=== PATIENT | female | born 1985 | race Caucasian/White ===

== ENCOUNTER 2019-11-05 14:51 | Emergency (ER) | payer BC, SELFPAY ==
[2019-11-05 14:53] VITALS: BP 171/115; PULSE 120; RESP 22; TEMP 36.8; O2SAT 99; BMI 26.5
[2019-11-05 15:23] LABS: Microscopic, Urine URINE MICROSCOPIC (MICROSCOPIC)
[2019-11-05 15:24] LABS: Appearance,Urine CLEAR (Clear); Bilirubin,Urine Negative (Negative); Blood, Urine Negative (Negative); Color,Urine YELLOW (Yellow); Glucose,Urine (UA) Negative (Negative); Ketones,Urine Negative (Negative); Leukocyte Esterase,Urine TRACE (Negative); Nitrate,Urine Negative (Negative); PH,Urine 6.5 (5.0-8.5); Protein,Urine Negative (Negative); Urobilinogen,Urine 0.2 EU/dl (0.2)
[2019-11-05 15:26] VITALS: BP 174/98; PULSE 131; O2SAT 99
--- NOTE | 2019-11-05 15:34 | [facility].EDGENADL ---
ED Disposition Clinical Impression: Adverse drug reaction Qualifiers: Encounter type: initial encounter Qualified Code(s): T50.905A - Adverse effect of unspecified drugs, medicaments and biological substances, initial encounter Disposition: Home, Self-Care Condition on Discharge: Good Additional Instructions: Do not take Haldol or Strattera until you see your primary care provider or psychiatrist. Follow-up with primary care provider or psychiatrist within 1 to 2 days. Cogentin and Ativan as prescribed. Prescriptions: LORazepam [Ativan 1mg tablet] 1 mg PO BID #6 tab Prescription Printed Benztropine Mesylate [Cogentin 1mg tablet] 1 mg PO BID #6 tab Prescription Printed Referrals: Ralph Valles MD [Primary Care Provider] - - Critical Care Critical Care Time: No Attestation: On 11/05/19, the high probability of a clinically significant, sudden or life threatening deterioration of the following system(s) required my full and direct attention, intervention and personal management. The time I documented below is in addition to time spent performing reported procedures but includes the following listed in this critical care notation. Medical Decision Making - Melecio Inquiry Pt receiving controlled substance: Yes (Ativan) Melecio was queried for this patient: No Reason not queried -: Emergent pt cond-no time Risks and benefits of using a controlled substance: were not discussed with pt by me Vital Signs: 11/05/19 14:53 11/05/19 15:26 11/05/19 16:13 Temperature 98.2 F Temperature Source Oral Pulse Rate [Right] 120 H 131 H 94 H Respiratory Rate 22 Blood Pressure [Right Arm] 171/115 H 174/98 H 141/97 H Blood Pressure Mean [Right Arm] 133 123 111 Blood Pressure Source [Right Arm] Automatic Cuff Automatic Cuff Blood Pressure Position [Right Arm] Sitting Sitting 02 Sat by Pulse Oximetry 99 99 98 Oxygen Delivery Method Room Air Room Air - Lab Data Lab Results 11/05/19 15:07: Urine Color Yellow, Urine Appearance Clear, Urine pH 6.5, Ur Specific [place] 1.010, Urine Protein Negative, Urine Glucose (UA) Negative, Urine Ketones Negative, Urine Blood Negative, Urine Nitrate Negative, Urine Bilirubin Negative, Urine Urobilinogen 0.2, Ur Leukocyte Esterase Trace, Urine RBC 3-5, Urine WBC 10-20, Ur Squamous Epith Cells 5-10, Urine Bacteria 1+ 11/05/19 15:07: Urine Opiates Screen Negative, Urine Methadone Screen Negative, Ur Barbituates Screen Negative, Ur Phencyclidine Scrn Negative, Ur Amphetamines Screen Negative, U Benzodiazepines Scrn Negative, Urine Cocaine Screen Negative, U Marijuana (THC) Screen Negative 11/05/19 15:11: WBC 7.5, RBC 4.54, Hgb 14.5, Hct 42.3, MCV 93.2, MCH 32.0 H, MCHC 34.4, RDW 13.3, Plt Count 363, MPV 6.8 L, Neut % (Auto) 72.6, Lymph % (Auto) 20.7, [place] % (Auto) 5.7, Eos % (Auto) 0.6, Baso % (Auto) 0.4, Neut # (Auto) 5.4, Lymph # (Auto) 1.6, [place] # (Auto) 0.4, Eos # (Auto) 0.0, Baso # (Auto) 0.0 11/05/19 15:11: Sodium 139, Potassium 4.0, Chloride 104, Carbon Dioxide 28, Anion Gap 11.0, BUN 16, Creatinine 0.60, Estimated Creat Clear 137, Estimated GFR 114, Est GFR ( Amer) 138, Glucose 129 H, Calcium 10.7 H, Total Bilirubin 0.3, AST 21, ALT 15, Alkaline Phosphatase 79, Total Protein 8.4 H, Albumin 4.9, Globulin 3.5 H, Albumin/Globulin Ratio 1.4, Salicylates 10.5, Acetaminophen 12 11/05/19 15:11: Plasma/Serum Alcohol < 10 11/05/19 15:11: Total Creatine Kinase 70 Result diagrams: 11/05/19 15:11 11/05/19 15:11 Orders (Tests/Meds): ED MEDICATIONS Generic Name Dose Route Start Last Admin Trade Name Freq PRN Reason Stop Dose Admin Benztropine Mesylate 2 mg 11/05/19 15:42 Cogentin 2mg/2ml Vial IV 11/05/19 15:43 ONCE ONE Benztropine Mesylate 2 mg 11/05/19 16:33 Cogentin 2mg/2ml Vial IV 11/05/19 16:34 ONCE ONE Nicotine 21 mg 11/05/19 16:30 11/05/19 16:19 Nicoderm 21mg/24hr Patch TD 12/05/19 16:29 21 mg DAILY MARU Administration Sodium Chloride
[2019-11-05 15:37] LABS: Barbiturates Screen,Urine Negative ng/ml (<200); Benzodiazepines Screen,Urine Negative ng/ml (<200)
[2019-11-05 15:38] LABS: Basophils % 0.4 % (0.1-2.0); Eosinophils % 0.6 % (0.1-12.0); Hematocrit 42.3 % (37.0-47.0); Hemoglobin 14.5 g/dL (12.2-16.2); Lymphocytes # 1.6 K/mm3 (0.7-4.5); Lymphocytes % 20.7 % (10-50); Mean Corpuscular HGB Conc 34.4 g/dL (31.8-35.4); Mean Corpuscular Volume 93.2 fl (81-99); Mean Platelet Volume 6.8 fl (7.4-10.4); Monocytes # 0.4 K/mm3 (0.1-1.0); Monocytes % 5.7 % (1.7-9.3); Neutrophils # 5.4 K/mm3 (1.8-7.8); Neutrophils % 72.6 % (37.0-80.0); Platelet Count 363 K/mm3 (142-424); Red Blood Count 4.54 M/mm3 (4.20-5.40); Red Cell Distribution Width 13.3 % (11.5-17.5); White Blood Count 7.5 K/mm3 (4.8-10.8)
[2019-11-05 15:38] LABS: Amphetamine/Metha Screen,Urine Negative ng/ml (<1000); Bacteria,Urine 1+ /lpf
[2019-11-05 15:39] LABS: Cannabinoid Screen,Urine Negative ng/ml (<50); Methadone Screen,Urine Negative ng/ml (<300)
[2019-11-05 15:39] LABS: Acetaminophen 12 ug/ml (10-30); Alanine Aminotransferase 15 U/L (12-78); Albumin Level 4.9 g/dl (3.5-5.0); Albumin/Globulin Ratio 1.4 (1.1-1.8); Alkaline Phosphatase 79 U/L (38-126); Aspartate Amino Transferase 21 U/L (14-36); Bilirubin,Total 0.3 mg/dl (0.2-1.3); Blood Urea Nitrogen 16 mg/dl (7-17); Calcium 10.7 mg/dl (8.4-10.2); Carbon Dioxide 28 mmol/L (22.0-30.0); Chloride 104 mmol/L (98-107); Creatinine Clearance Estimated 137 mL/min (50-200); Estimated Glomerular Filt Rate 114 ml/min (>60); GFR (African American) 138 ML/MIN (>60); Globulin 3.5 g/dL (1.3-3.2); Glucose 129 mg/dl (74-100); Salicylate 10.5 mg/dL (2.0-20.0); Sodium 139 mmol/L (136-145); Total Protein,Serum 8.4 g/dl (6.3-8.2)
[2019-11-05 15:40] LABS: Cocaine Screen,Urine Negative ng/ml (<300)
[2019-11-05 15:41] LABS: Opiate Screen,Urine Negative ng/ml (<300); Phencyclidine Screen,Urine Negative ng/ml (<25)
[2019-11-05 15:45] LABS: Ethyl Alcohol < 10 mg/dl (0-10)
--- NOTE | 2019-11-05 15:56 | ECG_ITS ---
APPROVED REPORT Exam: Resting ECG HR:94 bpm ECG Measurements Heart Rate 94 AXES OH 152 P 53 QRSd 72 QRS 1 QT 350 T 14 QTc 437 <Conclusion> Normal sinus rhythm Poor R Wave Progression Abnormal ECG Electronically signed by : Mark Oneil, 11/06/2019 08:51:46
[2019-11-05 16:11] LABS: Creatine Kinase 70 U/L (30-135)
[2019-11-05 16:13] VITALS: BP 141/97; PULSE 94; O2SAT 98
[2019-11-05 16:53] VITALS: BP 145/87; PULSE 95; RESP 18; TEMP 36.8; O2SAT 100
[2019-11-07 09:07] LABS: Lithium (Eskalith(R)) 0.3 mmol/L (0.6-1.2)
== END 2019-11-05 16:53 | disposition home or self-care (01) ==
PROVIDERS: Emergency Provider Emergency Medicine; PCP Family Medicine
DX: T43.4X1A Poisoning by butyrophenone and thiothixene neuroleptics, accidental (unintentional), initial encounter (principal); F31.5 Bipolar disorder, current episode depressed, severe, with psychotic features; F43.12 Post-traumatic stress disorder, chronic; M79.7 Fibromyalgia; F39 Unspecified mood [affective] disorder
CPT/HCPCS: 80053; 80178; 80305; 80329; 81001; 82550; 85025; 87086; 93005; 96374; 96375; 99283

== ENCOUNTER → 2020-12-20 17:10 | Outpatient (CLI) | payer BC, SELFPAY ==
[2020-12-20 19:27] LABS: Amphetamine/Metha Screen,Urine Negative ng/ml (<1000)
[2020-12-20 19:28] LABS: Barbiturates Screen,Urine Negative ng/ml (<200); Benzodiazepines Screen,Urine Negative ng/ml (<200)
[2020-12-20 19:29] LABS: Cannabinoid Screen,Urine Negative ng/ml (<50); Cocaine Screen,Urine Negative ng/ml (<300)
[2020-12-20 19:30] LABS: Methadone Screen,Urine Negative ng/ml (<300)
[2020-12-20 21:49] LABS: Opiate Screen,Urine Negative ng/ml (<300); Phencyclidine Screen,Urine Negative ng/ml (<25)
== END ==
PROVIDERS: Visit Provider Family Medicine
DX: Z79.899 Other long term (current) drug therapy (principal)
CPT/HCPCS: 80305

== ENCOUNTER → 2022-05-15 23:52 | Outpatient (CLI) | payer BC, SELFPAY ==
[2022-05-15 19:19] LABS: Amphetamine/Metha Screen,Urine Positive ng/ml (<1000)
[2022-05-15 19:20] LABS: Barbiturates Screen,Urine Negative ng/ml (<200); Benzodiazepines Screen,Urine Negative ng/ml (<200)
[2022-05-15 19:21] LABS: Cannabinoid Screen,Urine Negative ng/ml (<50)
[2022-05-15 19:22] LABS: Cocaine Screen,Urine Negative ng/ml (<300); Methadone Screen,Urine Negative ng/ml (<300)
[2022-05-15 19:23] LABS: Opiate Screen,Urine Negative ng/ml (<300)
[2022-05-15 19:26] LABS: Phencyclidine Screen,Urine Negative ng/ml (<25)
== END ==
PROVIDERS: PCP Family Medicine; Visit Provider Family Medicine
DX: F41.9 Anxiety disorder, unspecified (principal)
CPT/HCPCS: 80305

== ENCOUNTER → 2022-11-19 11:10 | Outpatient (CLI) | payer BC, SELFPAY ==
[2022-11-19 22:15] LABS: Amphetamine/Metha Screen,Urine Negative ng/ml (<1000)
[2022-11-19 22:16] LABS: Barbiturates Screen,Urine Negative ng/ml (<200)
[2022-11-19 22:17] LABS: Benzodiazepines Screen,Urine Negative ng/ml (<200)
[2022-11-19 22:18] LABS: Cocaine Screen,Urine Negative ng/ml (<300)
[2022-11-19 22:19] LABS: Cannabinoid Screen,Urine Positive ng/ml (<50); Methadone Screen,Urine Negative ng/ml (<300)
[2022-11-19 22:20] LABS: Opiate Screen,Urine Negative ng/ml (<300)
[2022-11-19 22:21] LABS: Phencyclidine Screen,Urine Negative ng/ml (<25)
== END ==
PROVIDERS: PCP Family Medicine; Visit Provider Family Medicine
DX: Z79.899 Other long term (current) drug therapy (principal)
CPT/HCPCS: 80305

== ENCOUNTER 2023-03-01 18:56 | Outpatient (CLI) | payer BC, SELFPAY ==
[2023-03-01 18:28] LABS: Basophils # 0.1 K/mm3 (0-0.2); Basophils % 0.8 % (0.1-2.0); Eosinophils # 0.2 K/mm3 (0.0-0.4); Eosinophils % 2.9 % (0.1-12.0); Hemoglobin 14.5 g/dL (12.2-16.2); Lymphocytes # 2.5 K/mm3 (0.7-4.5); Lymphocytes % 34.3 % (10-50); Mean Corpuscular HGB Conc 33.7 g/dL (31.8-35.4); Mean Corpuscular Hemoglobin 31.7 pg (27.0-31.2); Mean Corpuscular Volume 94.1 fl (81-99); Mean Platelet Volume 8.2 fl (7.4-10.4); Monocytes # 0.5 K/mm3 (0.1-1.0); Monocytes % 6.4 % (1.7-9.3); Neutrophils % 55.6 % (37.0-80.0); Platelet Count 416 K/mm3 (142-424); Red Blood Count 4.56 M/mm3 (4.20-5.40); Red Cell Distribution Width 12.8 % (11.5-17.5); White Blood Count 7.2 K/mm3 (4.8-10.8)
[2023-03-01 18:52] LABS: Chloride 104 mmol/L (98-107); Potassium 4.4 mmoL/L (3.5-5.1); Sodium 137 mmol/L (136-145)
[2023-03-01 18:54] LABS: Alanine Aminotransferase 26 U/L (12-78); Anion Gap 13.4 mEq/L (5-15); Aspartate Amino Transferase 30 U/L (14-36); Blood Urea Nitrogen 15 mg/dl (7-17); Carbon Dioxide 24 mmol/L (22.0-30.0); Estimated Glomerular Filt Rate 112 ml/min (>60); GFR (African American) 136 ML/MIN (>60)
[2023-03-01 18:55] LABS: Albumin Level 4.5 g/dl (3.5-5.0); Albumin/Globulin Ratio 1.7 (1.1-1.8); Alkaline Phosphatase 95 U/L (38-126); Bilirubin,Total 0.4 mg/dl (0.2-1.3); Calcium 9.2 mg/dl (8.4-10.2); Chol/HDL Ratio 3.2 (1-3.5); Cholesterol 227 mg/dl (140-200); Globulin 2.7 g/dL (1.3-3.2); Glucose 80 mg/dl (74-100); HDL Cholesterol 71 mg/dl (40-60); Total Protein,Serum 7.2 g/dl (6.3-8.2); Triglycerides 74 mg/dl (30-150); VLDL Cholesterol 15 mg/dL (0-40)
[2023-03-01 19:09] LABS: Direct LDL Cholesterol 122.66 mg/dL (100-129)
[2023-03-01 19:26] LABS: Thyroid Stimulating Hormone 1.24 uIU/mL (0.465-4.68)
[2023-03-01 20:52] LABS: Hemoglobin A1C 5.3 % (4.0-6.0)
[2023-03-01 20:59] LABS: Free T4 (Free Thyroxine) 1.23 ng/dl (0.78-2.19)
[2023-03-01 21:17] LABS: Barbiturates Screen,Urine Negative ng/ml (<200); Benzodiazepines Screen,Urine Negative ng/ml (<200)
[2023-03-01 21:19] LABS: Cocaine Screen,Urine Negative ng/ml (<300); Methadone Screen,Urine Negative ng/ml (<300)
[2023-03-01 21:20] LABS: Opiate Screen,Urine Negative ng/ml (<300); Phencyclidine Screen,Urine Negative ng/ml (<25)
[2023-03-01 23:00] LABS: Cannabinoid Screen,Urine Positive ng/ml (<50)
[2023-03-01 23:08] LABS: Amphetamine/Metha Screen,Urine Negative ng/ml (<1000)
[2023-03-01 23:37] LABS: Amphetamine/Metha Screen,Urine Negative ng/ml (<1000)
== END 2023-03-01 23:59 ==
LOC: LAB.DROPOF 18:57
PROVIDERS: Nurse Practitioner Acute Care; PCP Family Medicine; Visit Provider Family Medicine
DX: Z79.899 Other long term (current) drug therapy (principal); F43.10 Post-traumatic stress disorder, unspecified; F90.9 Attention-deficit hyperactivity disorder, unspecified type
CPT/HCPCS: 80053; 80061; 80307; 83036; 84439; 84443; 85025

== ENCOUNTER 2023-03-16 19:29 | Outpatient (CLI) | payer BC, SELFPAY ==
[2023-03-16 18:59] LABS: Barbiturates Screen,Urine Negative ng/ml (<200); Benzodiazepines Screen,Urine Negative ng/ml (<200)
[2023-03-16 19:00] LABS: Amphetamine/Metha Screen,Urine Positive ng/ml (<1000)
[2023-03-16 19:01] LABS: Cannabinoid Screen,Urine Negative ng/ml (<50); Methadone Screen,Urine Negative ng/ml (<300)
[2023-03-16 19:02] LABS: Cocaine Screen,Urine Negative ng/ml (<300); Opiate Screen,Urine Negative ng/ml (<300)
[2023-03-16 19:03] LABS: Phencyclidine Screen,Urine Negative ng/ml (<25)
[2023-03-23 15:29] LABS: Amphetamine/Metha Screen,Urine Positive ng/ml (<1000)
== END 2023-03-16 23:59 ==
LOC: LAB.DROPOF 19:30
PROVIDERS: PCP Nurse Practitioner Acute Care; Visit Provider Nurse Practitioner Acute Care
DX: Z79.899 Other long term (current) drug therapy (principal)
CPT/HCPCS: 80307

== ENCOUNTER 2023-08-18 08:16 | Outpatient (CLI) | payer MEDICAID, SELFPAY ==
--- NOTE | 2023-08-18 08:22 | US_ITS ---
FINAL REPORT CLINICAL HISTORY: abdominal pain COMPARISON: None FINDINGS: Sonographic images of the abdomen were obtained. There is increased echogenicity in the liver consistent with fatty infiltration of the liver. Multiple gallstones are present in the gallbladder. There is no evidence of biliary ductal dilatation. The common hepatic duct measures 5 mm. Limited images of the pancreas are unremarkable. The spleen size is normal. The right kidney measures 11.4 in length. The left kidney measures 9.8 in length. There is normal renal echogenicity. There is no evidence of hydronephrosis. The aorta has an unremarkable appearance. Limited images of the inferior vena cava are unremarkable. IMPRESSION: Multiple gallstones are in the gallbladder without evidence of biliary ductal dilatation. Fatty infiltration of the liver. Reviewed, Interpreted and Dictated by Zoran Gordon III, MD Transcribed by Charo Zamarripa Authenticated and [facility]
== END 2023-08-18 23:59 | disposition home or self-care (01) ==
LOC: RAD 08:18
PROVIDERS: PCP Internal Medicine; Visit Provider Internal Medicine
DX: K80.20 Calculus of gallbladder without cholecystitis without obstruction (principal); K76.0 Fatty (change of) liver, not elsewhere classified; R10.9 Unspecified abdominal pain
CPT/HCPCS: 76700

== ENCOUNTER 2023-09-04 09:34 | Emergency (ER) | payer MEDICAID, SELFPAY ==
[2023-09-04 09:43] VITALS: BP 149/101; PULSE 102; RESP 20; TEMP 36.8; O2SAT 100; BMI 38.9
--- NOTE | 2023-09-04 09:43 | CT_ITS ---
PROCEDURE INFORMATION: Exam: CT Abdomen And Pelvis With Contrast Exam date and time: 09/04/2023 10:46 AM Age: 38 years old Clinical indication: Abdominal pain; Localized; Right upper quadrant (ruq); Additional info: Ruq pain, reportedly no bm x 2 weeks TECHNIQUE: Imaging protocol: Computed tomography of the abdomen and pelvis with contrast. Radiation optimization: All CT scans at this facility use at least one of these dose optimization techniques: automated exposure control; mA and/or kV adjustment per patient size (includes targeted exams where dose is matched to clinical indication); or iterative reconstruction. Contrast material: ISOVUE; Contrast volume: 75 ml; Contrast route: IV; COMPARISON: US ABDOMEN COMPLETE 08/18/2023 8:51 AM FINDINGS: Diaphragm: Small hiatal hernia Liver: Decreased density throughout the liver compatible with hepatic steatosis. Gallbladder and biliary ducts: Known gallstones suboptimally visualized. Pancreas: Pancreas unremarkable Spleen: The spleen is unremarkable. Accessory splenule Adrenal glands: Adrenal glands unremarkable. Kidneys and ureters: No hydronephrosis. Stomach and bowel: Marked stool burden. dilatation of the ascending colon up to 6.5 cm. Subtle pericolonic mesenteric stranding in the region of the sigmoid colon. Clinically correlate regarding developing stercoral colitis. Appendix: No evidence of appendicitis. Intraperitoneal space: See Stomach and bowel finding. Vasculature: Unremarkable. No abdominal aortic aneurysm. Lymph nodes: Unremarkable. No enlarged lymph nodes. Urinary bladder: Unremarkable as visualized. Reproductive: Unremarkable as visualized. Bones/joints: Unremarkable. No acute fracture. Soft tissues: Unremarkable. Other findings: Abdomen window IMPRESSION: 1. Marked stool burden. 2. Subtle pericolonic mesenteric stranding in the region of the sigmoid colon. Clinically correlate regarding developing stercoral colitis.
--- NOTE | 2023-09-04 09:48 | HMH.EDGENADL ---
Discharge Plan Disposition Patient Disposition: Home, Self-Care Condition: Good Prescriptions Prescriptions: New amoxicillin-pot clavulanate 875-125 mg tablet 1 tab PO BID Qty: 20 0RF polyethylene glycol 3350 [Miralax] 17 gram/dose powder 17 g PO DAILY Qty: 510 0RF sennosides [senna] 8.6 mg tablet 8.6 mg PO DAILY Qty: 30 0RF pantoprazole 40 mg tablet,delayed release (DR/EC) 40 mg PO DAILY Qty: 30 0RF No Action Vraylar 3 mg capsule 3 mg PO DAILY Qty: 30 2RF medroxyprogesterone 150 mg/mL suspension IM [id number] Patient Comments: INJECT ONE (1) ML INTRAMUSCULARLY EVERY THREE (3) MONTHS gabapentin 600 mg tablet 600 mg PO TID Qty: 90 3RF ketorolac 10 mg tablet 10 mg PO Q8H Qty: 90 0RF Rx Instructions: maximum total duration of 5 days from all oral, intranasal, or parenteral formulations buprenorphine-naloxone [Suboxone] 8-2 mg film 2 film buccal DAILY clonidine HCl 0.1 mg tablet 0.1 mg PO BID Qty: 60 2RF mirtazapine 45 mg tablet 45 mg PO DAILY Qty: 30 2RF albuterol sulfate 90 mcg/actuation HFA aerosol inhaler 2 puff INHALATION Q4-6H PRN (Reason: shortness of breath or wheezing) Qty: 8.5 0RF cyclobenzaprine 10 mg tablet 10 mg PO TID 30 Days Qty: 90 5RF potassium chloride 10 mEq tablet,ER particles/crystals 10 meq PO BID 15 Days Qty: 30 0RF dextroamphetamine-amphetamine [Adderall] 20 mg tablet 20 mg PO BID 30 Days Qty: 60 0RF Rx Instructions: administer doses at least 4-6 hours apart duloxetine 60 mg capsule,delayed release(DR/EC) 60 mg PO DAILY Qty: 30 2RF duloxetine 30 mg capsule,delayed release(DR/EC) 30 mg PO DAILY Qty: 30 2RF clonazepam [Klonopin] 2 mg tablet 2 mg PO HS PRN (Reason: Anxiety and sleep) Qty: 30 0RF Rx Instructions: administer 30 minutes before bedtime promethazine 12.5 mg suppository 12.5 mg [place] Q6H PRN (Reason: nausea and vomiting) Qty: 12 0RF amoxicillin-pot clavulanate [Augmentin] 500-125 mg tablet 1 tab PO BID 14 Days Qty: 28 0RF Referrals Follow up/Referrals: Zoran Ryan MD [Staff Physician] - See instructions Simone Lemon DO [Primary Care Provider] - See instructions Activity Restrictions/Add. Instructions Additional Instructions/Restrictions: You were evaluated in the emergency department today. 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 We have also provided you with eardrops here in the emergency department. Administer 5 drops in the affected ear twice a day for 7 days or until the pain/discharge has resolved. Follow-up closely with your primary care provider for reassessment. I also recommend close follow-up with your primary care provider as well as general surgery to help schedule further evaluation for your gallbladder. Return to the emergency department for new or worsening symptoms. Clinical Impressions Clinical Impression: Left otitis externa, Abdominal pain, Constipation, Heartburn Instructions Patient Instructions: DI for Otitis Externa, DI for Abdominal Pain-Adult, DI for Constipation Discharge ED Provider: Denise Thomas General Adult HPI General Chief complaint: PAIN Stated complaint: both ear pain, lower abd pain side pain Time Seen by Provider: 09/04/23 09:42 History of Present Illness HPI narrative: This patient is a 38-year-old female with a history of opioid use disorder on Suboxone, PTSD, ADHD, prior history of tobacco abuse, and previous tubal infection as well as endometriosis presenting to the emergency department for evaluation with concern for left ear pain. Patient states that for the last week and a half, she has had pain in her left ear that has progressively worsened. She states that it got much worse last night. She has also had drainage from the left ear. Additionally, she notes that she has a bad gallbladder and was supposed to have it out, but she states no one ever called her. She denies ever seeing a surgeon, but states that Dr. Lemon had arranged all of this. She states she has been having abdominal pain for a while now, but the right upper quadrant pain has just been over the last several weeks. It looks like she complained of it 08/05/2023 at PCP visit, at which point outpatient ultrasound was scheduled for 08/18/2023 which demonstrated gallstones without cholecystitis. She was scheduled in the surgical suite 08/31/2023, but it does not appear that she showed. She also notes that she has not had a bowel movement in 2 weeks. She states has not been able to eat or drink very much. Related Data Home Medications Medication Instructions Recorded Confirmed buprenorphine 8 mg-naloxone 2 mg 2 film buccal DAILY 08/16/23 08/16/23 sublingual film (Suboxone) medroxyprogesterone 150 mg/mL mg IM [id number] 08/16/23 08/16/23 intramuscular suspension Previous Rx's Medication Instructions Recorded cariprazine 3 mg capsule (Vraylar) 3 mg PO DAILY #30 caps 07/09/23 clonidine HCl 0.1 mg tablet 0.1 mg PO BID #60 tabs 07/19/23 mirtazapine 45 mg tablet 45 mg PO DAILY #30 tabs 07/23/23 albuterol sulfate 90 mcg/actuation 2 puff inhalation Q4-6H PRN 08/05/23 aerosol inhaler shortness of breath or wheezing #8.5 grams cyclobenzaprine 10 mg tablet 10 mg PO TID 30 days #90 tabs 08/10/23 gabapentin 600 mg tablet 600 mg PO TID #90 tabs 08/10/23 ketorolac 10 mg tablet 10 mg PO Q8H #90 tabs 08/10/23 potassium chloride 10 mEq 10 meq PO BID 15 days #30 tabs 08/10/23 tablet,extended release(part/cryst) dextroamphetamine-amphetamine 20 20 mg PO BID 30 days #60 tabs 08/13/23 mg tablet (Adderall) clonazepam 2 mg tablet (Klonopin) 2 mg PO HS PRN Anxiety and sleep 08/23/23 #30 tabs duloxetine 30 mg capsule,delayed 30 mg PO DAILY #30 caps 08/23/23 release duloxetine 60 mg capsule,delayed 60 mg PO DAILY #30 caps 08/23/23 release promethazine 12.5 mg rectal 12.5 mg [place] Q6H PRN nausea and 08/25/23 suppository vomiting #12 ea amoxicillin 500 mg-potassium 1 tab PO BID 14 days #28 tabs 08/29/23 clavulanate 125 mg tablet (Augmentin) amoxicillin 875 mg-potassium 1 tab PO BID #20 tabs 09/04/23 clavulanate 125 mg tablet pantoprazole 40 mg tablet,delayed 40 mg PO DAILY #30 tabs 09/04/23 release polyethylene glycol 3350 17 17 g PO DAILY #510 grams 09/04/23 gram/dose oral powder (Miralax) sennosides 8.6 mg tablet (senna) 8.6 mg PO DAILY #30 tabs 09/04/23 Allergies Allergy/AdvReac Type Severity Reaction Status Date / Time No Known Allergies Allergy Verified 08/16/23 11:33 [facility] Disclaimer: The information contained in this section may have been updated after the patient was seen, as this information can be updated by other users. Medical History Leg cramping Attention deficit Premenstrual dysphoric disorder Chronic pain after traumatic injury PTSD (post-traumatic stress disorder) Mood disorder Anxiety Surgical History History of colonoscopy H/O tubal ligation History of tonsillectomy Social History Smoking Status: Current every day smoker tobacco type: cigarettes packs per day: 1 alcohol intake: never substance use type: denies use current occupational status: unemployed Travel in the last 8 weeks: None household members: none housing: house ROS Obtained: Yes All systems reviewed & no additional complaints except as documented Physical Exam General General appearance: alert and in no apparent distress Head Head exam: atraumatic and normocephalic Eye Eye exam: Present normal appearance, PERRL and EOMI ENT ENT exam: Present normal oropharynx and mucous membranes moist Expanded ENT Exam External ear exam: Present other (Significant irritation and discharge from the left ear canal which obscures view of the left tympanic membrane); Absent auricular hematoma, mastoid tenderness or periauricular adenopathy TM/Canal exam: Left TM: canal discharge and canal tenderness Mouth exam: Present normal external inspection Neck Neck exam: Present normal inspection, full ROM and trachea midline; Absent tenderness Chest Chest inspection: Present normal inspection and symmetric chest wall rise; Absent tenderness Respiratory Respiratory exam: Present normal lung sounds bilaterally; Absent respiratory distress, wheezes, stridor or accessory muscle use Cardiovascular Cardiovascular exam: Present regular rate and normal rhythm Abdominal Exam Abdominal exam: Present soft and tenderness (Epigastric and right upper quadrant); Absent distention, guarding, rebound or rigidity Extremities Exam Extremities exam: Present normal inspection, full ROM and normal capillary refill; Absent tenderness or edema Back Exam Back exam: Present normal inspection and full ROM; Absent tenderness Neurological Exam Neurological exam: Present alert, oriented X3, CN II-XII intact and normal gait; Absent motor sensory deficit Psychiatric Psychiatric exam: Present normal affect and normal mood Skin Skin exam: Present warm and dry Medical Decision Making Medical Records Medical records reviewed: Yes I reviewed the patient's medical records. Melecio Inquiry Pt receiving controlled substance: No Vital Signs: 09/04/23 09:43 09/04/23 11:01 09/04/23 11:31 Temperature 98.2 F Temperature Source Oral Pulse Rate 92 H Pulse Rate [Left Radial] 102 H Respiratory Rate 20 Blood Pressure 149/97 H 138/99 H Blood Pressure [Right Arm] 149/101 H Blood Pressure Mean 114 112 Blood Pressure Mean [Right Arm] 117 02 Sat by Pulse Oximetry 100 99 Oxygen Delivery Method Room Air Room Air 09/04/23 12:00 09/04/23 12:38 Temperature 98.2 F Temperature Source Pulse Rate 104 H 104 H Pulse Rate [Left Radial] Respiratory Rate 20 Blood Pressure 147/101 H 147/91 H Blood Pressure [Right Arm] Blood Pressure Mean 120 Blood Pressure Mean [Right Arm] 02 Sat by Pulse Oximetry 99 Oxygen Delivery Method Room Air Room Air Lab Data Lab results reviewed: Yes I reviewed the patient's lab results. Lab Results 09/04/23 10:00: WBC 8.7, RBC 4.21, Hgb 12.9, Hct 40.3, MCV 95.8, MCH 30.8, MCHC 32.1, RDW 13.4, Plt Count 421, MPV 7.8, Neut % (Auto) 69.9, Lymph % (Auto) 20.8, [place] % (Auto) 4.9, Eos % (Auto) 3.2, Baso % (Auto) 1.2, Neut # (Auto) 6.1, Lymph # (Auto) 1.8, [place] # (Auto) 0.4, Eos # (Auto) 0.3, Baso # (Auto) 0.1, Sodium 140, Potassium 4.3, Chloride 105, Carbon Dioxide 27, Anion Gap 12.3, BUN 18 H, Creatinine 0.70, Estimated Creat Clear 166, Estimated GFR 94, Est GFR ( Amer) 113, Glucose 108 H, Calcium 9.1, Total Bilirubin 0.2, AST 24, ALT 21, Alkaline Phosphatase 97, Total Protein 7.3, Albumin 4.2, Globulin 3.1, Albumin/Globulin Ratio 1.4, Lipase 38, Serum HCG, Qual Negative 09/04/23 10:56: Urine Color Yellow, Urine Appearance Clear, Urine pH 7.0, Ur Specific [place] <= 1.005, Urine Protein Negative, Urine Glucose (UA) Negative, Urine Ketones Negative, Urine Blood Negative, Urine Nitrate Negative, Urine Bilirubin Negative, Urine Urobilinogen 0.2, Ur Leukocyte Esterase Negative, Urine RBC None, Urine WBC None, Ur Squamous Epith Cells 3-5, Urine Bacteria Trace 09/04/23 10:00 09/04/23 10:00 Orders (Tests/Meds): ED MEDICATIONS Discontinued Medications Generic Name Dose Route Start Last Admin Trade Name Freq PRN Reason Stop Dose Admin Acetaminophen 1,000 mg 09/04/23 09:43 09/04/23 10:00 Acetaminophen 1,000mg/100ml Vial IV 09/04/23 09:44 1,000 mg ONCE ONE Administration Amoxicillin/Clavulanate Potassium 1 each 09/04/23 09:43 09/04/23 10:00 Amoxicillin/Clavulanate Potassium 875/125mg Tablet PO 09/04/23 09:44 1 each ONCE ONE Administration Ciprofloxacin/Dexamethasone 0 ml 09/04/23 09:43 09/04/23 10:06 Cipro 0.3%-Dex 0.1% Otic Susp 7.5ml OT 09/04/23 09:44 7.5 ml ONCE ONE Administration Lactated Ringer's 1,000 mls @ 999 mls/hr 09/04/23 09:43 09/04/23 10:00 Lactated Ringer's 1000 Ml Bag IV 09/04/23 10:43 999 mls/hr .Q1H1M ONE Administration Iopamidol 75 ml 09/04/23 10:44 09/04/23 10:45 Iopamidol-370 (76%);100ml Bottle IV 09/04/23 10:45 75 ml ONCE ONE Administration Ketorolac Tromethamine 15 mg 09/04/23 09:43 09/04/23 10:00 Ketorolac 30mg/Ml Vial IV 09/04/23 09:44 15 mg ONCE ONE Administration Ondansetron HCl 4 mg 09/04/23 09:43 09/04/23 10:00 Ondansetron 4mg/2ml Vial IV 09/04/23 09:44 4 mg ONCE ONE Administration Pantoprazole Sodium 40 mg 09/04/23 11:14 09/04/23 11:19 Pantoprazole 40mg Tablet PO 09/04/23 11:15 40 mg ONCE ONE Administration Sodium Chloride 10 ml 09/04/23 10:44 Sodium Chloride 0.9% 10ml Syr (Rad Only) IV 10/04/23 10:43 NEEDED PRN Maintain IV Site ORDERS Category Date Time Status CT abdomen pelvis w con Stat Cat Scan 09/04/23 09:43 Completed Complete Blood Count Auto Diff Stat Lab 09/04/23 10:00 Completed Comprehensive Metabolic Panel Stat Lab 09/04/23 10:00 Completed Lipase Stat Lab 09/04/23 10:00 Completed Serum [HCG Qualitative, Serum] Stat Lab 09/04/23 10:00 Completed UA [Urinalysis and Microscopic] Stat Lab 09/04/23 10:56 Completed Medical Decision Narrative: In summary, this patient is a 38-year-old female presenting to the Emergency Department for evaluation of left ear pain and drainage. She also notes that she has been having right upper quadrant pain and was told she needs her gallbladder out and has also not had a bowel movement in 2 weeks. Differential diagnoses considered include but are not limited to otitis media, otitis externa, constipation, cholecystitis, bowel obstruction. Ruling out the most morbid conditions drove assessment. It should be noted patient's history includes polypharmacy which is not at goal therapy. This complicates all aspects of care by increasing patient's risk for morbidity. I reviewed patient's past medical records and noted previous evaluation for right upper quadrant pain as well as outpatient ultrasound as per HPI. I also noted that her PCP and behavioral health specialist are working on weaning down multiple of her medications in the setting of prior polypharmacy. On exam, the patient is sitting upright in bed in no acute distress. She is nontoxic-appearing. She does have findings concerning for left otitis externa, and her TM is completely obscured so I am not able to successfully visualize. No external findings concerning for mastoiditis or other concerns. She does have right upper quadrant and epigastric tenderness, but otherwise abdominal exam is benign. Workup included CBC, CMP, lipase, CT abdomen and pelvis with IV contrast. She was given a bolus of IV fluids as well as IV Toradol, acetaminophen, and Zofran. For her ear infection, she was given Ciprodex drops as well as Augmentin. I independently interpreted CT scan prior to the radiologist read and noted very large stool burden, but no pericholecystic fluid or gallbladder wall thickening. Please see their read for final interpretation. Labs were obtained that demonstrated no significant leukocytosis, transaminitis, or other concerns that would suggest acute cholecystitis. On reassessment, patient had great improvement after administration of interventions above. She is resting comfortably. At this time, I feel that she is appropriate for discharge home. She states she has been having issues with acid reflux, so prior to discharge I did give her pantoprazole here as well as a prescription for it. I gave her prescriptions for senna and MiraLAX for bowel cleanout as well as Augmentin and the Ciprodex drops to treat her otitis. She was given instructions for close follow-up with primary care as well as general surgery should she wish to have her gallbladder further evaluated, but she does not have any findings of a suggest that she needs it out emergently today. Patient was discharged after all questions were answered with very strict return precautions. Critical Care Critical Care Time Critical Care Time: No
[2023-09-04] MEDS: LACTATED RINGERS 1000ML 1,000 ML 999 ML IV (10:00)
[2023-09-04] MEDS: KETOROLAC 30MG/ML VIAL 15 MG IV (10:00)
[2023-09-04] MEDS: ONDANSETRON 4MG/2ML VIAL 4 MG IV (10:00)
[2023-09-04] MEDS: ACETAMINOPHEN 1,000MG/100ML VIAL 1000 MG IV (10:00)
[2023-09-04] MEDS: AMOXICILLIN/CLAVULANATE POTASSIUM 875/125MG TABLET 1 EACH PO (10:00)
[2023-09-04] MEDS: CIPRO 0.3%-DEX 0.1% OTIC SUSP 7.5ML OT (10:06)
[2023-09-04 10:18] LABS: Basophils # 0.1 K/mm3 (0-0.2); Basophils % 1.2 % (0.1-2.0); Eosinophils # 0.3 K/mm3 (0.0-0.4); Eosinophils % 3.2 % (0.1-12.0); Hematocrit 40.3 % (37.0-47.0); Hemoglobin 12.9 g/dL (12.2-16.2); Lymphocytes # 1.8 K/mm3 (0.7-4.5); Lymphocytes % 20.8 % (10-50); Mean Corpuscular HGB Conc 32.1 g/dL (31.8-35.4); Mean Corpuscular Hemoglobin 30.8 pg (27.0-31.2); Mean Corpuscular Volume 95.8 fl (81-99); Mean Platelet Volume 7.8 fl (7.4-10.4); Monocytes # 0.4 K/mm3 (0.1-1.0); Monocytes % 4.9 % (1.7-9.3); Neutrophils # 6.1 K/mm3 (1.8-7.8); Neutrophils % 69.9 % (37.0-80.0); Platelet Count 421 K/mm3 (142-424); Red Blood Count 4.21 M/mm3 (4.20-5.40); Red Cell Distribution Width 13.4 % (11.5-17.5); White Blood Count 8.7 K/mm3 (4.8-10.8)
[2023-09-04 10:19] LABS: Chloride 105 mmol/L (98-107)
[2023-09-04 10:20] LABS: Potassium 4.3 mmoL/L (3.5-5.1); Sodium 140 mmol/L (136-145)
[2023-09-04 10:22] LABS: Blood Urea Nitrogen 18 mg/dl (7-17); Creatinine Clearance Estimated 166 mL/min (50-200); Estimated Glomerular Filt Rate 94 ml/min (>60); GFR (African American) 113 ML/MIN (>60); HCG Qualitative, Serum Negative (Negative)
[2023-09-04 10:23] LABS: Alanine Aminotransferase 21 U/L (12-78); Albumin Level 4.2 g/dl (3.5-5.0); Albumin/Globulin Ratio 1.4 (1.1-1.8); Alkaline Phosphatase 97 U/L (38-126); Anion Gap 12.3 mEq/L (5-15); Aspartate Amino Transferase 24 U/L (14-36); Bilirubin,Total 0.2 mg/dl (0.2-1.3); Calcium 9.1 mg/dl (8.4-10.2); Carbon Dioxide 27 mmol/L (22.0-30.0); Globulin 3.1 g/dL (1.3-3.2); Glucose 108 mg/dl (74-100); Lipase 38 U/L (23-300); Total Protein,Serum 7.3 g/dl (6.3-8.2)
[2023-09-04] MEDS: IOPAMIDOL-370 (76%);100ML BOTTLE 75 ML IV (10:45)
[2023-09-04 11:01] VITALS: BP 149/97; PULSE 92; O2SAT 99
[2023-09-04 11:02] LABS: Microscopic, Urine URINE MICROSCOPIC (MICROSCOPIC)
[2023-09-04 11:05] LABS: Appearance,Urine CLEAR (Clear); Bilirubin,Urine Negative (Negative); Blood, Urine Negative (Negative); Color,Urine YELLOW (Yellow); Glucose,Urine (UA) Negative (Negative); Ketones,Urine Negative (Negative); Leukocyte Esterase,Urine Negative (Negative); Nitrate,Urine Negative (Negative); Protein,Urine Negative (Negative); Specific Gravity, Urine <= 1.005 (1.005-1.030); Urobilinogen,Urine 0.2 EU/dl (0.2)
[2023-09-04 11:14] LABS: Bacteria,Urine Trace /lpf
[2023-09-04] MEDS: PANTOPRAZOLE 40MG TABLET 40 MG PO (11:19)
[2023-09-04 11:31] VITALS: BP 138/99
[2023-09-04 12:00] VITALS: BP 147/101; PULSE 104; O2SAT 99
[2023-09-04 12:38] VITALS: BP 147/91; PULSE 104; RESP 20; TEMP 36.8; O2SAT 100
== END 2023-09-04 12:39 | disposition home or self-care (01) ==
PROVIDERS: Emergency Provider Emergency Medicine; PCP Internal Medicine
DX: R10.13 Epigastric pain (principal); R10.11 Right upper quadrant pain; H60.92 Unspecified otitis externa, left ear; K59.00 Constipation, unspecified; K21.9 Gastro-esophageal reflux disease without esophagitis; F17.210 Nicotine dependence, cigarettes, uncomplicated
CPT/HCPCS: 74177; 80053; 81001; 83690; 84703; 85025; 96361; 96374; 96375; 99285; J0131; J1885; J2405; J7120; Q9967

== ENCOUNTER 2023-09-24 10:33 | Outpatient (CLI) | payer MEDICAID, SELFPAY ==
[2023-09-24 10:44] LABS: Urine Pregnancy, HCG Qual. Negative (Negative)
== END 2023-09-24 23:59 | disposition home or self-care (01) ==
LOC: LAB 10:33
PROVIDERS: PCP Internal Medicine; Visit Provider Surgery
DX: R10.11 Right upper quadrant pain (principal); R10.13 Epigastric pain
CPT/HCPCS: 81025

== ENCOUNTER 2023-11-11 06:09 | Day surgery (SDC) | payer MEDICAID, SELFPAY ==
[2023-11-10 09:24] VITALS: BMI 39.9
[2023-11-11] VITALS (12 sets, daily range): BP systolic 107–159; BP diastolic 56–103; PULSE 64–113; RESP 16–24; TEMP 36.4–43; O2SAT 8–99
[2023-11-11] MEDS: LACTATED RINGERS 1000ML 1,000 ML 25 ML IV (06:53)
--- NOTE | 2023-11-11 07:08 | P.PNANES_ITS ---
[facility] Disclaimer: The information contained in this section may have been updated after the patient was seen, as this information can be updated by other users. Medical History History of gastroesophageal reflux (GERD) Asthma Leg cramping Attention deficit Premenstrual dysphoric disorder Chronic pain after traumatic injury PTSD (post-traumatic stress disorder) Mood disorder Anxiety Surgical History History of colonoscopy H/O tubal ligation History of tonsillectomy Family History Other Family history of multiple sclerosis Social History (Updated 11/11/23 @ 06:44 by Selina Yeh RN) Smoking Status: Current every day smoker tobacco type: cigarettes packs per day: 1 alcohol intake: never substance use type: denies use current occupational status: unemployed Travel in the last 8 weeks: None household members: none housing: house [facility] Anesthesia Checklist Patient Identification Patient Identification: Arm Band and Family Structural Data Admitted From: Home Planned Operative Procedure/s: Lap Domitila Consent for Planned Operative Procedure(s) Verified: Yes Verified Documents: Surgical Consent and History and Physical NPO Status Verified Time NPO: 00:00 Additional verifications Patient : No Anesthesia Reactions: No Hx Blood Transfusions: No Blood Transfusion Reaction: No Cephalosporin Allergy: No Previous Colonoscopy: Yes Airway Assessment Mallampati Score:: Class II C-Spine Mobility Assessed: Yes TMJ Mobility Assessed: Yes Dentition: Good Dentition Neurological Assessment Level of Consciousness: Awake, Alert, Appropriate and Follows Commands Hx Seizures: No Numbness or tingling in extremities: No Anesthesia Plan Anesthesia Risk discussed: Yes ASA Class: II Anesthesia Type: General Preoperative Comments Pre-Operative Comments: Woke up during colonoscopy. Smokes one cig per day. Gastric reflux, controlled. Hep C years ago.
[2023-11-11 07:31] LABS: HCG Qualitative, Serum Negative (Negative)
[2023-11-11] MEDS: CEFAZOLIN SODIUM 2 GM in 0.9 % SODIUM CHLORIDE 100 ML IV (07:45)
[2023-11-11] MEDS: LIDOCAINE 1% 20ML MDV 20 ML (08:14)
--- NOTE | 2023-11-11 08:48 | EXP.OP.NOTE ---
Date of procedure: 11/11/23 Pre-op Diagnosis:: Symptomatic cholelithiasis Post-op Diagnosis:: Chronic calculus cholecystitis Procedure performed:: Laparoscopic cholecystectomy Surgeon:: Rubén Vides MD [employer]ONDITIONER:: Kevin Carty Anesthesia: GETA Estimated blood loss (mL): 15 Operative findings:: Fairly severe pericholecystic fat stranding Significant infundibular thickening Operative note:: After informed consent was obtained, the patient was taken to the operating room and placed in the supine position. General anesthesia was induced and the abdomen was prepped and draped in a sterile fashion. After infiltration with local anesthetic an infraumbilical incision was made. A Veress needle was placed in position. Attempts at insufflation were unsuccessful secondary to lack of appropriate pressure readings. A small stab incision was made in the left upper quadrant. A Veress needle was placed in position. The abdomen was insufflated. A 5 mm optical trocar was placed in position at the infraumbilical incision site. Under direct visualization, a 12 mm trocar was placed in the subxiphoid position and 2 additional 5 mm trocars were placed in the right upper quadrant. The gallbladder was elevated up and over the liver margin. The tissue around the cystic duct was carefully dissected. 3 clips were placed proximally and the duct was transected with harmonic britni. Harmonic britni were then utilized to dissect the gallbladder away from the liver margin with careful attention to the control of the cystic artery. The gallbladder was placed in a retrieval bag and removed through the subxiphoid trocar site. The right upper quadrant was thoroughly irrigated. No active bleeding or bile leak was noted. Fascia at the subxiphoid trocar site was reapproximated utilizing the NeoClose device. The remaining trocars were removed. All wounds were irrigated and skin was closed with 4-0 Monocryl in an interrupted mattress fashion to facilitate hemostasis. The patient's anesthetic agents were reversed and extubation was completed prior to transfer to recovery in stable condition. Condition: stable Disposition: PACU Specimens:: Gallbladder and contents Complications:: No immediate
--- NOTE | 2023-11-11 09:01 | P.PNANES_ITS ---
[facility] Anesthesia Record Part I Anesthesia Record I Intake, IV Amount: 1,100 Hydration: Adequate Estimated blood loss (mL): 4 Urine output (mL): 0 Blood Products used (#): none Blood Pressure: 145/92 SaO2: 91 Pulse Rate: 113 Airway Patency: Patent Respiratory Rate: 24 Temperature: 98.1 F Patient is:: Stable Stable to PACU at:: 08:54
[2023-11-11] MEDS: MORPHINE 2MG/ML SYRINGE 2 MG IV (09:13)
[2023-11-11] MEDS: HYDROMORPHONE 2MG/ML SYRINGE 0.5 MG IV (09:30)
--- NOTE | 2023-11-11 12:39 | EXP.ANES.I ---
[facility] Anesthesia Record Part I Anesthesia Record I Intake, IV Amount: 1,000 Hydration: Adequate Estimated blood loss (mL): 3 Urine output (mL): 0 Blood Products used (#): none Blood Pressure: 107/57 SaO2: 8 Pulse Rate: 98 Airway Patency: Patent Respiratory Rate: 24 Temperature: 98.1 F Patient is:: Drowsy and Stable
--- NOTE | 2023-11-12 08:40 | P.PNANES_ITS ---
[facility] Anesthesia Record Part II Anesthesia Record Part II Discharge Time: 09:38 Destination: Surgical Day Care (OP Surgery) PACU nurse assessment reviewed?: Yes Patient Condition:: Good Anesthesia Complications:: None Swallowing reflex intact?: Yes Airway Patency: Patent Cyanosis?: No Blood Pressure: 137/84 SaO2: 97 Respiratory Rate: 16 Pulse Rate: 99 Temperature: 98.7 F Mental Status: Alert & Oriented Pain level:: 5 Nausea and/or vomitting:: None Intake, IV Amount: 0 Hydration: Adequate
[2023-11-12 08:41] VITALS: BP 137/84; PULSE 99; RESP 16; TEMP 37.1; O2SAT 97
== END 2023-11-11 10:10 | disposition home or self-care (01) ==
PROVIDERS: PCP Internal Medicine; Visit Provider Surgery
PROC: 0FT44ZZ Resection of Gallbladder, Percutaneous Endoscopic Approach (ICD-10-PCS; CPT 47562; principal; 2023-11-11 07:30)
DX: K80.10 Calculus of gallbladder with chronic cholecystitis without obstruction (principal)
CPT/HCPCS: 47562; 84703; 96374; J3490; J0690; J1100; J1170; J2250; J2270; J2405; J3010; J7120

== ENCOUNTER 2024-02-26 15:18 | Emergency (ER) | payer MEDICAID, SELFPAY ==
[2024-02-26] VITALS (9 sets, daily range): BP systolic 91–175; BP diastolic 64–98; PULSE 87–125; RESP 17–24; TEMP 36.8; O2SAT 97–100; BMI 34.4
--- NOTE | 2024-02-26 15:26 | ECG_ITS ---
APPROVED REPORT Exam: Resting ECG HR:123 bpm ECG Measurements Heart Rate 123 AXES OH 151 P 66 QRSd 85 QRS 2 QT 408 T 54 QTc 481 Conclusion SINUS TACHYCARDIA POSSIBLE ANTERIOR MYOCARDIAL INFARCTION , PROBABLY OLD [30 ms Q WAVE IN V3/V4, OR R < 0.2 mV IN V4] ABNORMAL RHYTHM ECG UNCONFIRMED REPORT Electronically signed by : Kevin Graham, 02/26/2024 23:11:52
--- NOTE | 2024-02-26 15:38 | HMH.EDGENADL ---
Discharge Plan Disposition Patient Disposition: Home, Self-Care Prescriptions Prescriptions: New sulfamethoxazole-trimethoprim [Bactrim DS] 800-160 mg tablet 1 tab PO BID 10 Days Qty: 20 0RF cephalexin 500 mg capsule 500 mg PO QID 10 Days Qty: 40 0RF No Action medroxyprogesterone 150 mg/mL suspension 1 mg IM [id number] Patient Comments: INJECT ONE (1) ML INTRAMUSCULARLY EVERY THREE (3) MONTHS buprenorphine-naloxone [Suboxone] 8-2 mg film 2 film buccal DAILY promethazine 12.5 mg tablet 12.5 mg PO TID Qty: 10 0RF clonidine HCl 0.1 mg tablet 0.1 mg PO BID Qty: 180 1RF mirtazapine 45 mg tablet 45 mg PO DAILY Qty: 90 1RF albuterol sulfate 90 mcg/actuation HFA aerosol inhaler 2 puff INHALATION Q4-6H PRN (Reason: shortness of breath or wheezing) Qty: 8.5 0RF pantoprazole 40 mg tablet,delayed release (DR/EC) 40 mg PO DAILY Qty: 90 2RF ibuprofen 800 mg tablet 800 mg PO BID Qty: 30 0RF cyclobenzaprine 10 mg tablet 10 mg PO TID 30 Days Qty: 90 5RF potassium chloride 10 mEq tablet,ER particles/crystals 10 meq PO BID 15 Days Qty: 30 0RF clonazepam [Klonopin] 2 mg tablet 2 mg PO HS PRN (Reason: Anxiety and sleep) Qty: 30 0RF Rx Instructions: administer 30 minutes before bedtime duloxetine 60 mg capsule,delayed release(DR/EC) 60 mg PO DAILY Qty: 30 2RF duloxetine 30 mg capsule,delayed release(DR/EC) 30 mg PO DAILY Qty: 30 2RF clonazepam [Klonopin] 0.5 mg tablet 0.5 mg PO DAILY PRN (Reason: Panic attack) Qty: 14 0RF tramadol 100 mg tablet extended release 24 hr 100 mg PO DAILY 60 Days Qty: 60 0RF dextroamphetamine-amphetamine [Adderall] 10 mg tablet 10 mg PO DAILY Qty: 30 0RF Rx Instructions: Take in the afternoon if needed. dextroamphetamine-amphetamine [Adderall XR] 30 mg capsule,extended release 24hr 30 mg PO DAILY Qty: 30 0RF dextroamphetamine-amphetamine [Adderall] 5 mg tablet 5 mg PO DAILY PRN (Reason: Anxiety) Qty: 30 0RF Rx Instructions: Take in the early evening as needed, at least 6 hours from the afternoon dose. hydrocodone-acetaminophen 5-325 mg tablet 1 tab PO Q6H PRN (Reason: pain) Qty: 17 0RF Rx Instructions: Hold Suboxone while taking [place] Referrals Follow up/Referrals: Aspen Rascon MD [Referring] - See instructions Simone Lemon DO [Primary Care Provider] - See instructions Activity Restrictions/Add. Instructions Additional Instructions/Restrictions: Please keep topical Neosporin on your wounds until they have healed and follow-up with dermatology if you are not improving in 1 to 2 weeks. Please complete your oral antibiotics as prescribed Clinical Impressions Clinical Impression: Skin lesions, Tachycardia, Leukopenia, Hypokalemia Instructions Patient Instructions: DI for Skin Abscess Print Language Print Language: Tunisian Discharge ED Provider: Jose Graham General Adult HPI General Chief complaint: Skin/Abscess/Foreign Body Stated complaint: hands swollen, rash on face and hands Time Seen by Provider: 02/26/24 15:37 Mode of Arrival: Ambulatory Source of Information: Patient and Spouse Limitations: No Limitations Description of Symptoms (Recalled from ER Triage Doc. by RN): pt is here for rash on mouth and hands, no new allergies, pt spouse and cat also have rash, pt has recently switched from suboxone to tramadol recently History of Present Illness HPI narrative: 38-year-old female presents today with numerous skin lesions. States that she has a history of MRSA infections. She has some lesions on bilateral aspects of her mouth as well as bilateral upper and lower extremities. They are ulcerative in nature. Not actively weeping or oozing. No fevers or chills. She does take clonidine for chronic hypertension and has missed her dose today and she states this may be the cause of her elevated heart rate. She denies any fevers or chills. Denies any other symptoms. Related Data Home Medications ?Medication ?Instructions ?Recorded ?Confirmed buprenorphine 8 mg-naloxone 2 mg 2 film buccal DAILY 08/16/23 02/14/24 sublingual film (Suboxone) medroxyprogesterone 150 mg/mL 1 mg IM [id number] Control 08/16/23 02/14/24 intramuscular suspension Previous Rx's ?Medication ?Instructions ?Recorded albuterol sulfate 90 mcg/actuation 2 puff inhalation Q4-6H PRN 08/05/23 aerosol inhaler shortness of breath or wheezing #8.5 grams clonidine HCl 0.1 mg tablet 0.1 mg PO BID #180 tabs 10/19/23 mirtazapine 45 mg tablet 45 mg PO DAILY #90 tabs 10/19/23 pantoprazole 40 mg tablet,delayed 40 mg PO DAILY accid reflux #90 11/09/23 release tabs hydrocodone 5 mg-acetaminophen 325 1 tab PO Q6H PRN pain #17 tabs 11/11/23 mg tablet ibuprofen 800 mg tablet 800 mg PO BID break through pain 11/15/23 #30 tabs cyclobenzaprine 10 mg tablet 10 mg PO TID 30 days #90 tabs 01/27/24 potassium chloride 10 mEq 10 meq PO BID 15 days #30 tabs 01/27/24 tablet,extended release(part/cryst) clonazepam 2 mg tablet (Klonopin) 2 mg PO HS PRN Anxiety and sleep 02/07/24 #30 tabs clonazepam 0.5 mg tablet (Klonopin) 0.5 mg PO DAILY PRN Panic attack 02/15/24 #14 tabs duloxetine 30 mg capsule,delayed 30 mg PO DAILY #30 caps 02/15/24 release duloxetine 60 mg capsule,delayed 60 mg PO DAILY #30 caps 02/15/24 release promethazine 12.5 mg tablet 12.5 mg PO TID nausea and vomiting 02/15/24 #10 tabs tramadol 100 mg tablet,extended 100 mg PO DAILY pain 60 days #60 02/17/24 release 24 hr tabs dextroamphetamine-amphetamine 10 10 mg PO DAILY #30 tabs 02/23/24 mg tablet (Adderall) dextroamphetamine-amphetamine 5 mg 5 mg PO DAILY PRN Anxiety #30 tabs 02/23/24 tablet (Adderall) dextroamphetamine-amphetamine ER 30 mg PO DAILY #30 caps 02/23/24 30 mg 24hr capsule,extend release (Adderall XR) cephalexin 500 mg capsule 500 mg PO QID 10 days #40 caps 02/26/24 sulfamethoxazole 800 1 tab PO BID 10 days #20 tabs 02/26/24 mg-trimethoprim 160 mg tablet (Bactrim DS) Allergies Allergy/AdvReac Type Severity Reaction Status Date / Time No Known Allergies Allergy Verified 11/11/23 06:29 [facility] Disclaimer: The information contained in this section may have been updated after the patient was seen, as this information can be updated by other users. Medical History History of gastroesophageal reflux (GERD) Asthma Leg cramping Attention deficit Premenstrual dysphoric disorder Chronic pain after traumatic injury PTSD (post-traumatic stress disorder) Mood disorder Anxiety Surgical History History of colonoscopy H/O tubal ligation History of tonsillectomy Family History Other Family history of multiple sclerosis Social History Smoking Status: Current every day smoker tobacco type: cigarettes packs per day: 1 alcohol intake: never substance use type: denies use current occupational status: unemployed Travel in the last 8 weeks: None household members: none housing: house Have you lived/traveled outside [place] in past 30 days?: No Contact w/someone who lives/traveled outside [place] past 30 days?: No Exposure to someone with infectious disease in past 14 days?: No Do you have a fever (greater than 100.4 F or 38 C)?: No Have you tested positive for COVID-19: No Exposed to someone with COVID-19 in past 14 days?: No Do you have a sore throat?: Yes Do you have a cough?: Yes Do you have any weakness?: Yes Do you have any diarrhea?: No Are you experiencing any unusual bleeding?: No Do you have any muscle aches/pain?: No Do you have any abdominal pain?: No Are you experiencing loss of taste or smell?: No Other Medical History Have you received the Flu Vaccine for this season: No Have you received the Pneumonia Vaccine: No ROS Obtained: Yes All systems reviewed & no additional complaints except as documented Physical Exam General General appearance: alert and in no apparent distress Respiratory Respiratory exam: Present normal lung sounds bilaterally Cardiovascular Cardiovascular exam: Present regular rate Neurological Exam Neurological exam: Present alert and oriented X3 Skin Skin exam: Present other (Superficial ulcerative and erythematous lesions on bilateral cheeks upper extremities and the forearms lower extremities none of which are greater than a few centimeters in depth and none are actively weeping or moist) Medical Decision Making Medical Records Screening: Per USPSTF and CDC recommendations, given the prevalence of disease in our region, it is our hospital?s policy to screen for HIV and viral Hepatitis for all patients aged 18 and over and those with ongoing risk factors. Melecio Inquiry Pt receiving controlled substance: No Vital Signs: 02/26/24 15:20 02/26/24 15:30 02/26/24 16:00 Temperature 98.2 F Temperature Source Oral Pulse Rate 96 H Pulse Rate [Left Radial] 125 H Respiratory Rate 20 20 24 Blood Pressure 138/89 143/98 H Blood Pressure [Right Arm] 175/98 H Blood Pressure Mean [Right Arm] 123 02 Sat by Pulse Oximetry 100 97 Oxygen Delivery Method Room Air 02/26/24 16:30 02/26/24 17:00 02/26/24 17:31 Temperature Temperature Source Pulse Rate 90 92 H Pulse Rate [Left Radial] Respiratory Rate 18 17 23 Blood Pressure 133/87 132/93 H 137/80 Blood Pressure [Right Arm] Blood Pressure Mean [Right Arm] 02 Sat by Pulse Oximetry 99 97 99 Oxygen Delivery Method Room Air Room Air Room Air 02/26/24 18:02 02/26/24 18:30 Temperature Temperature Source Pulse Rate 94 H 92 H Pulse Rate [Left Radial] Respiratory Rate 21 24 Blood Pressure 91/73 L 101/80 L Blood Pressure [Right Arm] Blood Pressure Mean [Right Arm] 02 Sat by Pulse Oximetry 97 Oxygen Delivery Method Room Air Lab Data Lab Results 02/26/24 16:17: WBC 4.0 L, RBC 4.38, Hgb 12.9, Hct 38.2, MCV 87.2, MCH 29.5, MCHC 33.8, RDW 13.4, Plt Count 392, MPV 9.5, Neut % (Auto) 55.8, Lymph % (Auto) 33.4, [place] % (Auto) 8.4, Eos % (Auto) 1.5, Baso % (Auto) 0.7, Neut # (Auto) 2.3, Lymph # (Auto) 1.4, [place] # (Auto) 0.3, Eos # (Auto) 0.1, Baso # (Auto) 0.0, Sodium 139, Potassium 2.8 L*, Chloride 107, Carbon Dioxide 22, Anion Gap 12.8, BUN 9, Creatinine 1.00, Estimated Creat Clear 110, Estimated GFR 62, Est GFR ( Amer) 75, Glucose 80, Calcium 9.3, Total Bilirubin 0.2, AST 35, ALT 34, Alkaline Phosphatase 124, Total Protein 7.0, Albumin 4.3, Globulin 2.7, Albumin/Globulin Ratio 1.6, HCV Ab GILBERT w/Rflx PCR Qn Reactive, HIV Ag/Ab Combo Qual Negative 02/26/24 16:17 02/26/24 16:17 Orders (Tests/Meds): ED MEDICATIONS Generic Name Dose Route Start Last Admin Trade Name Freq PRN Reason Stop Dose Admin Potassium Chloride/Water 100 mls @ 100 mls/hr 02/26/24 17:15 02/26/24 18:39 Potassium Chloride 10meq/100ml Ivpb IV 02/26/24 20:14 100 mls/hr Q1H MARU Administration Discontinued Medications Generic Name Dose Route Start Last Admin Trade Name Freq PRN Reason Stop Dose Admin Cephalexin HCl 500 mg 02/26/24 15:47 02/26/24 17:00 Cephalexin 500mg Capsule PO 02/26/24 15:48 500 mg ONCE ONE Administration Sodium Chloride 1,000 mls @ 999 mls/hr 02/26/24 16:00 02/26/24 17:00 Sod Chlor 0.9% 1000ml Bag IV 02/26/24 17:00 999 mls/hr .Q1H1M MARU Administration Potassium Chloride 40 meq 02/26/24 17:03 02/26/24 17:15 Potassium Chloride 20meq Tab PO 02/26/24 17:04 40 meq ONCE ONE Administration Trimethoprim/Sulfamethoxazole 1 each 02/26/24 15:47 02/26/24 17:00 Sulfa/Trimethoprim 1 Tablet PO 02/26/24 15:48 1 each ONCE ONE Administration ORDERS Category Date Time Status CBC w/Auto Diff [Complete Blood Count Auto Diff] Stat Lab 02/26/24 16:17 Completed CMP [Comprehensive Metabolic Panel] Stat Lab 02/26/24 16:17 Completed HCV RNA PCR, Quant Stat Lab 02/26/24 16:17 Received HIV Combo Stat Lab 02/26/24 16:17 Completed Hepatitis C Ab Qual. W/ RFX Stat Lab 02/26/24 16:17 Completed Wound Culture and Gram Stain Stat Micro 02/26/24 18:40 Received Medical Decision Narrative: 38-year-old with superficial ulcerative skin lesions throughout. She is tachycardic but likely secondary to reflex tachycardia having missed her clonidine dose she will take her home medications right now. IV fluids will be administered as well. Will attempt to culture one of the lesions. Pseudomonas is on the differential however most likely this is staph or strep with her history of MRSA I would suspect that is most likely. Will give a dose of Bactrim and Keflex and have her follow-up with Dr. Rascon with dermatology to ensure resolution. She has no mucosal involvement on my exam I am not suspicious of any other more toxic or systemic illness at the moment. Reassessment 659 after several hours of observation and potassium replacement patient remains very stable. She has been advised to follow-up with primary care doctor as well as dermatology. She has been advised to keep topical antibiotic ointment on her wounds and to take her oral antibiotics as well. Of note she was positive for hepatitis C antibody she is aware of this she has cleared the virus in the past she does have some ongoing risk factors and reflex RNA has been sent but unlikely to be positive. Critical Care Critical Care Time Critical Care Time: No
--- NOTE | 2024-02-26 15:40 | PC.NURSE ---
DR HAWK AT BEDSIDE
--- NOTE | 2024-02-26 16:22 | PC.NURSE ---
Patient given a blanket
[2024-02-26 16:35] LABS: Basophils % 0.7 % (0.1-2.0); Eosinophils # 0.1 K/mm3 (0.0-0.4); Eosinophils % 1.5 % (0.1-12.0); Hematocrit 38.2 % (37.0-47.0); Hemoglobin 12.9 g/dL (12.2-16.2); Lymphocytes # 1.4 K/mm3 (0.7-4.5); Lymphocytes % 33.4 % (10-50); Mean Corpuscular HGB Conc 33.8 g/dL (31.8-35.4); Mean Corpuscular Hemoglobin 29.5 pg (27.0-31.2); Mean Corpuscular Volume 87.2 fl (81-99); Mean Platelet Volume 9.5 fl (7.4-10.4); Monocytes # 0.3 K/mm3 (0.1-1.0); Monocytes % 8.4 % (1.7-9.3); Neutrophils # 2.3 K/mm3 (1.8-7.8); Neutrophils % 55.8 % (37.0-80.0); Platelet Count 392 K/mm3 (142-424); Red Blood Count 4.38 M/mm3 (4.20-5.40); Red Cell Distribution Width 13.4 % (11.5-17.5)
[2024-02-26 16:38] LABS: Sodium 139 mmol/L (136-145)
[2024-02-26 16:41] LABS: Alanine Aminotransferase 34 U/L (12-78); Alkaline Phosphatase 124 U/L (38-126); Aspartate Amino Transferase 35 U/L (14-36); Bilirubin,Total 0.2 mg/dl (0.2-1.3); Blood Urea Nitrogen 9 mg/dl (7-17); Creatinine Clearance Estimated 110 mL/min (50-200); Estimated Glomerular Filt Rate 62 ml/min (>60); GFR (African American) 75 ML/MIN (>60)
[2024-02-26 16:42] LABS: Calcium 9.3 mg/dl (8.4-10.2); Glucose 80 mg/dl (74-100)
[2024-02-26 16:43] LABS: Potassium 2.8 mmoL/L (3.5-5.1)
[2024-02-26] MEDS: SULFA/TRIMETHOPRIM 1 TABLET 1 EACH PO (17:00)
[2024-02-26] MEDS: cephALEXin 500MG CAPSULE 500 MG PO (17:00)
[2024-02-26] MEDS: 0.9 % SODIUM CHLORIDE 1000ML 1,000 ML 999 ML IV (17:00)
[2024-02-26 17:14] LABS: Anion Gap 12.8 mEq/L (5-15); Carbon Dioxide 22 mmol/L (22.0-30.0); Chloride 107 mmol/L (98-107)
[2024-02-26] MEDS: POTASSIUM CHLORIDE 20MEQ TAB 40 MEQ PO (17:15)
[2024-02-26 17:16] LABS: Albumin Level 4.3 g/dl (3.5-5.0); Albumin/Globulin Ratio 1.6 (1.1-1.8); Globulin 2.7 g/dL (1.3-3.2)
[2024-02-26] MEDS: KCl 10mEq/100ml 100 ML 100 MEQ IV ×3 (17:22→19:43)
[2024-02-26 17:59] LABS: HIV Combo NEGATIVE (Negative)
[2024-02-26 18:08] LABS: Hepatitis C Ab Qual. W/ RFX REACTIVE (Negative)
== END 2024-02-26 21:12 | disposition home or self-care (01) ==
PROVIDERS: Emergency Provider Student in an Organized Health Care Education/Training Program; PCP Internal Medicine
DX: E87.6 Hypokalemia (principal); D72.819 Decreased white blood cell count, unspecified; R00.0 Tachycardia, unspecified; L98.9 Disorder of the skin and subcutaneous tissue, unspecified; R21 Rash and other nonspecific skin eruption
CPT/HCPCS: 80053; 85025; 86803; 87070; 87077; 87205; 87389; 87522; 93005; 96361; 96365; 96366; 99284; J3480; J7030

== ENCOUNTER 2024-03-22 10:41 | Outpatient (POV) | payer MEDICAID, SELFPAY ==
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
[2024-03-22 11:50] VITALS: BP 134/83; PULSE 119; RESP 18; O2SAT 98; BMI 36.6
== END 2024-03-22 23:59 | disposition home or self-care (01) ==
LOC: SC.PAIN 10:42
PROVIDERS: PCP Internal Medicine; Visit Provider Nurse Practitioner Family
DX: M46.1 Sacroiliitis, not elsewhere classified (principal); Z73.89 Other problems related to life management difficulty; F17.210 Nicotine dependence, cigarettes, uncomplicated; Z79.899 Other long term (current) drug therapy
CPT/HCPCS: 99202; G0463

== ENCOUNTER 2024-04-11 09:15 | Day surgery (SDC) | payer MEDICAID, SELFPAY ==
[2024-04-11 09:20] VITALS: BP 121/83; PULSE 101; RESP 16; TEMP 36.5; O2SAT 98; BMI 36.6
[2024-04-11] MEDS: methylPREDNISolone ACETATE 80MG/ML VIAL 80 MG (09:55)
[2024-04-11] MEDS: BUPIVACAINE 0.25% 10ML INJ 25 MG IJ (09:56)
[2024-04-11] MEDS: LIDOCAINE 1% 5ML PF VIAL 5 ML (09:56)
[2024-04-11 09:59] VITALS: BP 135/91; PULSE 107; RESP 18; O2SAT 97
[2024-04-11 10:02] VITALS: BP 135/91; PULSE 107; RESP 18; O2SAT 97
--- NOTE | 2024-04-11 10:03 | P.PCN_ITS ---
Procedure Date: 04/11/24 Time: 09:50 Anesthesiologist:: Merrick Monaco CRNA Complications:: None Pre-procedure Diagnosis:: Bilateral sacroiliitis Post-procedure Diagnosis:: Same Indications for Procedure:: Patient is a very pleasant 39-year-old female who comes our clinic today for bilateral sacroiliac joint injections cortisone and local anesthetic. Patient describes low lumbar back pain off the midline bilaterally. Bilateral posterior hip pain. Difficulty transitioning from sitting to standing. She rates her pain 8/10. Procedure Details:: Procedure: Bilateral sacroiliac joint injections under fluoroscopy Informed consent was obtained and the risks and benefits of the procedure were explained to the patient.~ The patient was taken to the procedure room and noninvasive monitors were placed including a noninvasive blood pressure cuff and pulse oximeter.~ The patient was placed prone on the procedure table. Both hips were cleansed using Betadine as a cleansing solution. C-arm fluoroscopy was used to view the right sacroiliac joint.~ The skin and subcutaneous tissues were anesthetized using lidocaine 1.5% and a 25-gauge needle.~ After this, a 22-gauge spinal needle was inserted under fluoroscopic guidance into the inferior aspect of the right sacroiliac joint.~ Omnipaque dye was injected and good spread was seen throughout the joint.~ After this, approximately 5 mL of bupivacaine, 0.25% and Depo-Medrol, 40 mg was incrementally injected into the right sacroiliac joint. We then moved to the left sacroiliac joint.~ The skin and subcutaneous tissues were anesthetized using lidocaine 1.5% and a 25-gauge needle.~ After this, a 22- gauge spinal needle was inserted under fluoroscopic guidance into the inferior aspect of the left sacroiliac joint.~ Omnipaque dye was injected and good spread was seen throughout the joint. After this, approximately 5 mL of bupivacaine, 0.25% and Depo-Medrol, 40 mg was incrementally injected into the left sacroiliac joint.~ The patient tolerated the procedure well with no complications. The patient was observed in the Pain Clinic and then was discharged home neurologically intact. Plan and Disposition:: Patient was discharged without incident.
[2024-04-11 10:10] VITALS: BP 131/95; PULSE 102; RESP 16; O2SAT 98
== END 2024-04-11 10:10 | disposition home or self-care (01) ==
PROVIDERS: PCP Internal Medicine; Visit Provider Nurse Anesthetist, Certified Registered
DX: M46.1 Sacroiliitis, not elsewhere classified (principal)
CPT/HCPCS: 27096; G0260; J1010

== ENCOUNTER 2024-10-10 15:00 | Outpatient (CLI) | payer OTHER, SELFPAY ==
--- OUTSIDE RECORDS SUMMARY | 2024-09-16 05:00 | XMS_ITS ---
Author Organization [facility] Address [address] [place] [address] Phone [phone] Care Team Providers Care Packer And Carry Out Name Role Phone CabreraLeeann Unavailable [phone] Migration, Provider Unavailable Unavailable REASON FOR VISIT EMR-Neal Encounters Encounter Location Date Provider Diagnosis [address] [address] 09/16/2024 Provider Migration Plan Of Treatment No Information Progress Notes * PANCHO CABRALOB: 6 (39 yo F)Acc No.[id number]:09/16/2024 Patient: KEVON GOREHEL :1985 A ge:39 Y S ex:Female Phone: Address:[address] [place] [address] [facility] [address] Subjective: * Chief Complaints: * E MR-Neal * * Date:
--- OUTSIDE RECORDS SUMMARY | 2024-09-17 05:00 | XMS_ITS ---
Author Organization [facility] Address [address] [place] [address] Phone [phone] Care Team Providers Care Hat Forming Machine Feeder Name Role Phone Leeann Cabrera Unavailable [phone] Migration, Provider Unavailable Unavailable REASON FOR VISIT [facility] Medications Medication SIG (Take, Route, Fr equency, Duration) Notes Start Date End Date Status OLANZapine 5 MG Tablet Oral 03/12/2022 Active Social History Social History Additional Details Category Social Info Options Details Migrated Social History Migrated Social History Alcohol Intake: None 03/12/2022,Tobacco Years: Current every day smoker 03/12/2022,Smoking Status: 03/12/2022 Encounters Encounter Location Date Provider Diagnosis [address] [address] 09/17/2024 Provider Migration Plan Of Treatment No Information Progress Notes * PANCHO CABRALOB: 6 (39 yo F)Acc No.[id number]:09/17/2024 Patient: RHINA GORE :1985 A ge:39 Y S ex:Female Phone: Address:[address] [place] [address], [place], [facility] Subjective: * Chief Complaints: * E MR-Neal [...]
[2024-10-10 19:56] LABS: Albumin Level 4.6 g/dl (3.5-5.0); Chloride 107 mmol/L (98-107); Potassium 4.2 mmoL/L (3.5-5.1); Sodium 139 mmol/L (136-145)
[2024-10-10 19:59] LABS: Alanine Aminotransferase 25 U/L (12-78); Albumin/Globulin Ratio 1.8 (1.1-1.8); Alkaline Phosphatase 94 U/L (38-126); Anion Gap 16.2 mEq/L (5-15); Aspartate Amino Transferase 27 U/L (14-36); Bilirubin,Total 0.3 mg/dl (0.2-1.3); Blood Urea Nitrogen 17 mg/dl (7-17); Calcium 9.1 mg/dl (8.4-10.2); Carbon Dioxide 20 mmol/L (22.0-30.0); Creatinine,Serum 0.50 mg/dl (0.52-1.04); Estimated Glomerular Filt Rate 137 ml/min (>60); GFR (African American) 166 ML/MIN (>60); Globulin 2.6 g/dL (1.3-3.2); Glucose 110 mg/dl (74-100); Total Protein,Serum 7.2 g/dl (6.3-8.2)
[2024-10-10 20:16] LABS: Free T4 (Free Thyroxine) 1.67 ng/dl (0.78-2.19)
[2024-10-10 20:32] LABS: Thyroid Stimulating Hormone 1.49 uIU/mL (0.465-4.68)
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
--- OUTSIDE RECORDS SUMMARY | 2024-10-11 12:38 | XMS_ITS ---
Author Organization [employer] [facility] Address [address] [place] [address] Phone Care Team Providers Care Print Finishing Worker Name Role Phone Pravin Mathew MD Primary Care Physician [ ] Conditions or Problems Problem Name Problem Code Onset Date Status Entry Date Provider Comment Standard Description Annotate Bronchitis, acute 87704804 (SNOMED CT) 03/05 Inactive 03/05 Pravin Mathew MD Acute bronchitis HEPATITIS C NOS B19.20 (ICD-10-CM ) 11/08 Active 11/08 Pravin Mathew MD Unspecified viral hepatitis C without hepatic coma FAMILY PLANNING 931797302 (SNOMED CT) 10/11 Active 10/11 Pravin Mathew MD Contraception care History of SUBSTANCE ABUSE 25334117 (SNOMED CT) 10/11 Active 10/11 Pravin Mathew MD Substance abuse History of BACK PAIN 863026594 (SNOMED CT) 10/11 Active 10/11 Pravin Mathew MD Backache NAUSEA ALONE 546041726 (SNOMED CT) 10/11 Active 10/11 Pravin Mathew MD Nausea History of ANXIETY DISORDER 530332858 (SNOMED CT) 10/11 Active 10/11 Pravin Mathew MD Anxiety disorder GERD 680595509 (SNOMED CT) 10/11 Active 10/11 Pravin Mathew MD Gastroesophageal reflux disease History of ADD 97275696 (SNOMED CT) 10/11 Active 10/11 Pravin Mathew MD Attention deficit hyperactivity disorder, predominantly inattentive type TOBACCO USE DIS F17.200 (ICD-10-CM ) 10/11 Active 10/11 Pravin Mathew MD Nicotine dependence, unspecified, uncomplicated Medications Medication Instructions Start Date Stop Date Generic Name [facility] Provider BUPRENORPHINE HCL 8 MG SUBL 1 TAB 2 TIMES / DAY BUPRENORPHINE HCL 67611456407 Yary Vicente SANTI KLONOPIN 1 MG TABS 1 TAB Q8H PRN CLONAZEPAM [id number] Yary Vicente SANTI DEPO-PROVERA 150 MG/ML SUSP FOR IM INJECTION MEDROXYPROGESTERONE ACETATE [id number] Pravin Mathew MD DIFLUCAN 150 MG TABS TAKE 1 TAB Q72H FOR 3 DOSES FLUCONAZOLE [id number] Pravin Mathew MD IBUPROFEN 600 MG TABS 1 TAB 3 TIMES / DAY WITH FOOD PRN IBUPROFEN [id number] Pravin Mathew MD KLONOPIN 1 MG TABS 1 TAB Q8H PRN CLONAZEPAM 30021975915 Pravin Mathew MD ADDERALL 30 MG TABS 1 TAB 2 TIMES / DAY, 4-6 HRS APART AMPHETAMINE-DEXTROAMP HETAMINE [id number] Yary Vicente SANTI VENTOLIN HFA 108 (90 Base) MCG/ACT AERS 2 PUFFS Q4H PRN ALBUTEROL SULFATE 59767238070 Pravin Mathew MD ZITHROMAX Z-CLARA 250 MG TABS Take 2 tablets by mouth on day 1 then take 1 tablet once a day thereafter AZITHROMYCIN 26537727478 Pravin Mathew MD BUPRENORPHINE HCL 8 MG SUBL 1 TAB 2 TIMES / DAY BUPRENORPHINE HCL [id number] Pravin Mathew MD BUPRENORPHINE HCL 8 MG SUBL 1 TAB 2 TIMES / DAY BUPRENORPHINE HCL 19878306078 Pravin Mathew MD DIFLUCAN 150 MG TABS TAKE 1 TAB DIRECTED FLUCONAZOLE 72462570152 Pravin Mathew MD DEPO-PROVERA 150 MG/ML SUSP FOR IM INJECTION MEDROXYPROGESTERONE ACETATE 80991512559 Pravin Mathew MD KLONOPIN 1 MG TABS 1 TAB Q8H PRN CLONAZEPAM 17703954421 Pravin Mathew MD KLONOPIN 1 MG TABS 1 TAB Q8H PRN CLONAZEPAM [id number] Pravin Mathew MD ADDERALL 20 MG TABS 1 TAB 2 TIMES/DAY, 4-6 HRS APART AMPHETAMINE-DEXTROAMP HETAMINE [id number] Pravin Mathew MD PROMETHAZINE HCL 25 MG TABS 1 TAB 2 TIMES / DAY PRN PROMETHAZINE HCL 46175999996 Pravin Mathew MD ADDERALL 10 MG TABS 1 TAB 2 TIMES / DAY, 4-6 HRS APART AMPHETAMINE-DEXTROAMP HETAMINE 51934779727 Pravin Mathew MD BUPRENORPHINE HCL 8 MG SUBL 1 TAB 2 TIMES / DAY BUPRENORPHINE HCL [id number] Pravin Mathew MD PROMETHAZINE HCL 12.5 MG TABS 1 TAB 2 TIMES / DAY PRN PROMETHAZINE HCL 56647998836 Pravin Mathew MD ADDERALL XR 10 MG [id number] 1 CAP DAILY AMPHETAMINE-DEXTROAMP HETAMINE [id number] Pravin Mathew MD KLONOPIN 0.5 MG TABS 1 TAB Q8H PRN CLONAZEPAM [id number] Pravin Mathew MD OMEPRAZOLE 20 MG TBEC 1 TAB QAM BEFORE BRKFST OMEPRAZOLE [id number] Pravin Mathew MD DEPO-PROVERA 150 MG/ML SUSP FOR IM INJECTION MEDROXYPROGESTERONE ACETATE [id number] Pravin Mathew MD Medications Administered No information available. Allergies, Adverse Reactions, Alerts Allergy Name Reaction Description Start Date Severity Statu s Provider FLAGYL Critical Active Pravin acosta MD Results Date Name Value Unit Range Flag Description Lab Report: CBC (H/H, RBC, I NDICES, WBC, PLT), COMPREHENSIVE METABOLIC P ... B12 614 pg/mL 200-1100 N Cobalamin (V itamin B12) [Mass/volume] in Serum or Plasma TSHREFLX FT4 0.63 m[iU]/L N TSH (thy roid stimulating hormone) with reflex FT4 VIT D 25-OH 60 ng/mL 30-100 N 25-Hydrox ycalcifero l [Mass/volume] in Serum or Plasma CHOLESTEROL 181 mg/dL 125-200 N Cholester ol [Mass/volume] in Serum or Plasma - mg/dL HDL 67 mg/dL >OR = 46 N Cholesterol in HDL [Mass/volume] in Serum or Plasma - mg/dL TRIGLYCRDES 73 mg/dL <150 N Triglycer jacquie [Mass/volume] in Serum or Plasma - mg/dL LDL 99 MG/DL (CALC) mg/dL <130 N Cholesterol in L DL [Mass/volume] in Serum or Plasma - mg/dL CHOL/HDL % 2.7 (calc) < OR = 5.0 N cholesterol/HDL ratio, serum, percent HEP C AB REACTIVE NON-REACT I A Hepatitis C virus Ab [Presence] in Serum SGPT (ALT) 18 U/L 6-29 N Alanine aminotransferase [Enzymatic activity/volume] in Serum or Plasma SGOT (AST) 29 U/L 10-30 N Aspartate aminotransferase [Enzymatic activity/volume] in Serum or Plasma ALK PHOS 95 U/L 33-115 N Alkaline phosphatase [Enzymatic activity/volume] in Blood BILI TOTAL 0.5 mg/dL 0.2-1.2 N Bilirubin. total [Mass/volume] in Serum or Plasma A/G RATIO 1.6 (calc) 1.0-2.5 N Albumin/ Globulin [Mass Ratio] in Serum or Plasma GLOBULIN TOT 3.0 G/DL (CALC) g/dL 1.9-3.7 N Globulin [Mass/volume] in Serum ALBUMIN EOP 4.8 g/dL 3.6-5.1 N Albumin [Mass/volume] in Serum or Plasma by Electrophoresis PROTEIN, TOT 7.8 g/dL 6.1-8.1 N Protein [Mass/volume] in Serum or Plasma CALCIUM 9.8 mg/dL 8.6-10.2 N Calcium [Moles/volume] in Serum or Plasma CO2 25 mmol/L 19-30 N Carbon dioxid e, total [Moles/volume] in Venous blood CHLORIDE BLD 101 mmol/L 98-110 N chloride , blood POTASSIUM 3.9 mmol/L 3.5-5.3 N Potassium [Moles/volume] in Serum or Plasma SODIUM 139 mmol/L 135-146 N Sodium [Moles/volume] in Serum or Plasma BUN/CREAT NOT APPLICABLE (calc) 6-22 Urea nitrogen/Creatinine [Mass Ratio] in Serum or Plasma EGFR 120 mL/min/1 .73m2 >OR = 60 N Glomerular filtration rate/1.73 sq M.predicted [Volume Rate/Area] in Serum, Plasma or Blood by Creatinine-based formula (MDRD) CREATININE 0.67 mg/dL 0.50-1.10 N Creatini ne [Mass/volume] in Serum or Plasma BUN 14 mg/dL 7-25 N Urea nitrogen [Mass/volume] in Serum or Plasma BG RANDOM 93 mg/dL 65-99 N Glucose [Mass/volume] in Blood PLATELETK/UL 306 THOUSAND/UL 10*3/uL 140-400 N platelet count RDW 14.2 % 11.0-15.0 N Erythrocyte distribution width [Ratio] by Automated count OL-MCHC 33.8 g/dL 32.0-36.0 N mean corpus cular hemoglobin concentration, rbc MCH 31.8 pg 27.0-33.0 N MCH [Entiti c mass] by Automated count MCV 94.0 fL 80.0-100. 0 N MCV [Entitic volume] by Automated count HCT 49.1 % 35.0-45.0 H Hematocrit [Volume Fraction] of Blood by Automated count HGB 16.6 g/dL 11.7-15.5 H Hemoglobin [Mass/volume] in Blood RBC M/UL 5.22 MILLION/UL 10*6/uL 3.80-5.10 H red blood count WBC CT BLOOD 6.5 10*3/uL 3.8-10.8 N leukocy te count, blood Plan of Care Type Date Detail Referral Gastroenterology Referral [facility], [address], [place], [address] Referral [facility], [address] [place], [address] Referral [facility], [address] [place], [address] Pending order 32165 ESTAB efoc /efoc/low Pending order Urine Drug Scree n with Confirmation Pending order 23094 ESTAB efoc /efoc/low Pending order Urine Drug Scree n w/o Confirmation Pending order 14561 ESTAB efoc /efoc/low Pending order Psych Dx Eval WI TH E&M -MD/FILM ARCHIVIST Only Pending order HCG Qualitative Pending order B12 Pending order CBC no diff Pending order CMP Pending order Lipid Panel Pending order Hep C Ab Pending order HCG Qualitative Pending order TSH reflex to fr ee T4 Pending order Vitamin D 25 Hyd leonel Pending order HIV Antibody -co nsent required Patient education Medications Procedures Code Procedure Name Date Entry Date 23036 [facility] # Urine Drug Screen with Confirmation 74340 [facility] # Urine Drug Screen w/o Confirmation CPT-83885 Psych Dx Eval WITH E&M -MD/FILM ARCHIVIST Only [address] [facility] Re ferral [facility] 10/11 HP [facility] 8435 [facility] # HCG Qualitative 927 [facility] # B12 [facility]# 1759 [place] 08047 [facility] # CMP 7 56475 [facility] # Lipid Panel 7 8472 [facility] # Hep C Ab 8435 [facility] # HCG Qualitative 93190 [facility] # TSH reflex to free T4 60362 [facility] # Vitamin D 25 Hydroxy 2 15071 [facility] # HIV Antibody -consent required 2013 Vital Signs Date Name Value Unit Description BMI (Body Mass Index) 23.08 kg/m2 Bod y Mass Index (Ratio) BP Systolic 1 mm[Hg] blood pressur e, systolic Weight Measured 134 [lb_av] weight E& M Weight Measured 134 [lb_av] weight E& M BP Diastolic 83 mm[Hg] blood pressu re, diastolic Heart Rate 88 /min pulse rate Height 162.56 cm height in cent imeters E&M Height 64 [in_us] height E&M Weight Measured 62.05 kg weight in kilograms E&M Body Temperature 98.1 [degF] temperat ure E&M Body Temperature 36.7 Sophie temperat ure in centigrade E&M Immunizations No information available. Advance Directives No information available.
--- OUTSIDE RECORDS SUMMARY | 2024-10-11 12:38 | XMS_ITS | Patient Health Record ---
Author Organization [facility] Address [address] [place] [address] Care Team Providers Care Behavioral Health Professional Name Role Phone KENNY CASTILLO Primary Care Provider Unavailabl e Allergies No Known Allergies Reason For Referral No Information Medications Medication SIG (Take, Route, Frequency, Duration) Notes Start Date End Date Status Vraylar Active Gabapentin Active Cymbalta Active Immunizations Vaccine Route Administration Date Status Comme nts Hepatitis A: VAQTA Adult PFS (19yr & older) IM Intramuscular 04/25/2022 Administered Plan Of Treatment No Information Insurance Providers Payer Name Payer Address Payer Phone Subscriber Number Group Number Insured Name Patient Relationship to Insured Coverage Start Date Coverage End Date [employer] [place] [address] [address] [place] [address] [id number] Elin Shelley Self - patient is the insured Medications Administered Medication Instructions Date of Administration Dosage Notes Depo-Provera 04/27/2022 1 mL Depo-Provera 07/08/2022 1 mL Medical (General) History Surgical History Surgery Date(Month/Year) tubal ligation
--- OUTSIDE RECORDS SUMMARY | 2024-10-11 12:39 | XMS_ITS | Clinical Summary ---
Author Organization [facility] Address [address] [place] [address] Phone Care Team Providers Care Blender/Braze Applicator Name Role Phone Kevin Vazquez MD Unavailable [phone] Scott Madrid MD Unavailable Nonstaff, Referring Primary Care Provider Unavai lable Allergies Active Allergy Reactions Criticality Noted Date Comments Meloxicam 09/12/2014 Buprenorphine-Naloxone 09/12/2014 [facility] Medications * This document contains information received from the source organization and may not represent a complete record from that organization. fluconazole (DIFLUCAN) 150 mg Oral Tablet take 1 now & may repeat in 3 days prn 2 Tab 7 Active Additional Information Patient not taking.Reason: Pt electing to not take the medication, Reported on 01/28/2019 azithromycin (ZITHROMAX) 250 mg Oral TabletIndicatio ns:Acute bacterial sinusitis 2 today , then 1 po q day x 4 days 6 Tab 7 Active Additional Information Patient not taking.Reason: Pt electing to not take the medication, Reported on 01/28/2019 quetiapine fumarate (SEROQUEL ORAL) Take 50 mg by mouth. Active nalOXone (NARCAN) 4 mg/actuation [employer], Non-Aerosol 0.1 mL by INTRANASAL route as needed for Opioid Reversal. 1 Package 9 Active Additional Information Patient not taking.Reason: Other, Reported on 09/30/2019 clonazePAM (KLONOPIN) 0.5 mg Oral Tablet Take 0.5 mg by mouth 3 times daily. Active gabapentin (NEURONTIN) 600 mg Oral Tablet Take 600 mg by mouth 3 times daily. Active lithium 300 mg Oral Tablet Take 300 mg by mouth 4 times daily. Active VRAYLAR 1.5 mg Oral Capsule 3 Active DULoxetine (CYMBALTA) 30 mg Oral Capsule, Delayed Release(E.C.) 3 Active mirtazapine (REMERON) 30 mg Oral Tablet 3 Active penicillin v potassium (VEETID) 500 mg Oral Tablet Take 500 mg by mouth 3 times daily. 3 Active ibuprofen (ADVIL;MOTRIN) 600 mg Oral Tablet Take 1 Tablet by mouth every 8 hours as needed for Pain for up to 30 days. 30 Tablet 3 Active Active Problems Patient Care Coordination No te Formatting of this note migh t be different from the original. 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 Alcohol dependence in remission 07/04/2021 PTSD (post-traumatic stress disorder) 10/27/2019 Suicidal ideation 07/14/2019 Laceration of index finger w ithout foreign body without damage to nail 07/14/2019 Substance induced mood disorder 07/13/2019 Polysubstance abuse 09/15/2016 Fibromyalgia 03/16/2016 Lumbar degenerative disc disease 02/26/2016 Hx of T12 Closed compression fracture of thoraci c vertebra 02/26/2016 Cigarette smoker 08/26/2015 Memory loss 01/23/2015 Methamphetamine dependence 01/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 SEP, ? EGD, ? polyps Polysubstance dependence Overview (04/10/2014): Dr Weber, Subutex, hx heroin. Resolved Problems Problem Noted Date Diagnosed Date Resolved Date Substance induced mood disorder 07/04/2021 07/05/2021 Schizoaffective disorder, bipolar type 07/04/2021 07/05/2021 Opioid dependence with opioi d-induced psychotic disorder 07/13/2019 07/05/2021 Immunizations Immunization Administration Dates Next Due Influenza Patient Reported 12/21/2006 Surgical History Surgery Date Site/Laterality Comments TUBAL LIGATION TONSILLECTOMY AND ADENOIDECTOMY at 18 ENDOMETRIAL ABLATION endometriosis, x 4 OVARY REMOVAL ? removed right & part of left - Dr Murillo FRACTURE SURGERY nose Medical History Medical History Date Comments Anxiety Depression Nausea chronic, with st ress, saw GI MD - ? SEP, ? EGD, ? polyps Family History Medical History Relation Name Comments Anxiety Disorder Other 1 ADHD Other 2 Cancer Paternal Grandmother stomach Relation Name Status Comments Other 1 Other 2 Paternal Grandmother Social History Tobacco Use Types Packs/Day Years Used Date Smoking Tobacco: Every Day Cigarettes 0.5 10 Smokeless Tobacco: Never Tobacco Cessation:Ready to Q uit: Not Asked; Counseling Given: Not Answered Alcohol Use Standard Drinks/Week Comments No 0 (1 standard drink = 0.6 oz pur e alcohol) Comments No Sex and Gender Information Value Date Recorded Sex Assigned at Not on file Legal Sex Female 6:02 AM EDT Gender Identity Not on file Sexual Orientation Not on file Occupation Industry Job Start 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[employer], sits with pt Not on file Not on file Not on file Obstetrics History Last Filed Vital Signs Vital Sign Reading Time Taken Comments Blood Pressure 129/94 09/14/2022 11:45 AM EDT Pulse 105 09/14/2022 11:05 AM EDT Temperature 36.8 C (98.2 F) 09/14/2022 11:45 AM EDT Respiratory Rate 16 09/14/2022 11:05 AM EDT Oxygen Saturation 100% 09/14/2022 11:05 AM EDT Inhaled Oxygen Concentration - - Weight 86.2 kg (190 lb) 09/14/2022 11:45 AM EDT Height 162.6 cm (5' 4 ) 09/14/2022 11:45 AM EDT Body Mass Index 32.61 09/14/2022 11:45 AM EDT Plan of Treatment Health Maintenance Due Date Last Done Comments Pneumococcal Vaccine 0-49 (1 of 2 - PCV) 2004 Hepatitis B Vaccine (2 of 3 - 19+ 3-dose series) 11/14/2010 10/17/2010 HPV/Pap Cotest 2015 Annual Wellness Exam 04/10/2015 04/10/2014 (Postponed) Cervical Cancer Screening 04/10/2017 Pap Smear 04/10/2017 04/10/2014 (Postponed) DTaP/TDaP/Td (2 - Td or Tdap) 04/04/2022 04/04/2012 COVID-19 Vaccine (1 - 2023-2 5 season) 2023 Influenza Vaccine (#1) 2024 6 (Declined), 04/10/2014 (Postponed), 12/21/2006 Meningococcal B Vaccine Aged Out No l onger eligible based on patient's age to complete this topic Goals Goal Patient Goal Type Associated Problems Recent Progress Patient-Stated? Author Maintain a healthy diet, exercise regularly and maintain an ideal body weight General No [place] RMA Stay Tobacco Free Lifestyle No [place], [facility]STAL Insurance [facility] MEDICAID MEDICAID Care Teams Blender/Braze Applicator Relationship Specialty Start Date End Date Nonstaff, Referring PCP - General 09/30/19 Kevin Vazquez MD [address] [facility] [place] [address] Psychiatry & Neurology-Neurology 01/24/15 Scott Madrid MD [address] [facility] [address] [place] [address] Urology 01/24/15
--- OUTSIDE RECORDS SUMMARY | 2024-10-11 12:39 | XMS_ITS | Patient Health Record ---
Author Organization [facility] Address [address] [place] [address] Phone [phone] Care Team Providers Care Field Sales Consultant Name Role Phone Leeann Cabrera Unavailable [phone] Migration, Provider Unavailable Unavailable Reason For Referral No Information Medications Medication SIG (Take, Route, Fr equency, Duration) Notes Start Date End Date Status OLANZapine 5 MG Tablet Oral 03/12/2022 Active Social History Social History Additional Details Category Social Info Options Details Migrated Social History Migrated Social History Alcohol Intake: None 03/12/2022,Tobacco Years: Current every day smoker 03/12/2022,Smoking Status: 25 03/12/2022 Problems Problem Type SNOMED Code ICD Code Onset Dates Problem Status W/U Status Risk Notes Problem 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) 3 Active confirmed Problem Repeated prescription (244719420) Encounter for issue of repeat prescription (Z76.0) 3 Active confirmed Encounters Encounter Location Date Provider [facility] [address] [place] [address] 09/16/2024 Provider Migration [address] [address] 09/17/2024 Provider Migration Plan Of Treatment No Information Insurance Providers Payer Name Payer Address Payer Phone Subscriber Number Group Number Insured Name Patient Relationship to Insured Coverage Start Date Coverage End Date [employer]placement - [place]) [address] [address] [place] [address] [id number] CABRAL Self - patient is the insured Medical (General) History Surgical History Surgery Date(Month/Year) Hysterectomy Tubal ligation
== END 2024-10-10 23:59 | disposition home or self-care (01) ==
LOC: LAB.DROPOF 10-11 12:36
PROVIDERS: PCP Nurse Practitioner Acute Care; Visit Provider Nurse Practitioner Acute Care
DX: F41.1 Generalized anxiety disorder (principal); F90.9 Attention-deficit hyperactivity disorder, unspecified type; E66.9 Obesity, unspecified; F32.A Depression, unspecified; F43.10 Post-traumatic stress disorder, unspecified
CPT/HCPCS: 80053; 84439; 84443

== ENCOUNTER 2025-01-23 13:24 | Day surgery (SDC) | payer OTHER, SELFPAY ==
[2025-01-23 13:33] VITALS: BP 127/93; PULSE 98; RESP 16; O2SAT 99; BMI 30.9
[2025-01-23 13:40] VITALS: BP 138/88; PULSE 107; RESP 18; O2SAT 100
[2025-01-23] MEDS: BUPIVACAINE 0.25% 10ML INJ 25 MG IJ (13:40)
[2025-01-23] MEDS: DEXAMETHASONE 10MG/ML 1ML VIAL 10 MG (13:40)
[2025-01-23] MEDS: LIDOCAINE 1% 5ML PF VIAL 5 ML (13:41)
[2025-01-23 13:43] VITALS: BP 138/88; PULSE 107; RESP 18; O2SAT 100
[2025-01-23 13:49] VITALS: BP 129/96; PULSE 85; RESP 16; O2SAT 99
--- NOTE | 2025-01-23 13:52 | P.PCN_ITS ---
Procedure Date: 01/23/25 Time: 13:45 Anesthesiologist:: Valeriy Monaco CRNA Complications:: None Pre-procedure Diagnosis:: Bilateral sacroiliitis Post-procedure Diagnosis:: Same Indications for Procedure:: Patient is a very pleasant 39-year-old female who comes to clinic today for bila teral sacroiliac joint injection of cortisone and local anesthetic. Patient describes low lumbar back pain off the midline bilaterally. Bilateral posterior hip pain. Difficulty transitioning from sitting to standing. Difficulty with ambulation due to the bilateral posterior hip pain. She rates her pain 7/10. Procedure Details:: Procedure: Bilateral sacroiliac joint injections under fluoroscopy Informed consent was obtained and the risks and benefits of the procedure were explained to the patient.~ The patient was taken to the procedure room and noninvasive monitors were placed including a noninvasive blood pressure cuff and pulse oximeter.~ The patient was placed prone on the procedure table. Both hips were cleansed using Betadine as a cleansing solution. C-arm fluoroscopy was used to view the right sacroiliac joint.~ The skin and subcutaneous tissues were anesthetized using lidocaine 1.5% and a 25-gauge needle.~ After this, a 22-gauge spinal needle was inserted under fluoroscopic guidance into the inferior aspect of the right sacroiliac joint.~ Omnipaque dye was injected and good spread was seen throughout the joint.~ After this, approximately 5 mL of bupivacaine, 0.25% and dexamethasone 5 mg was incrementally injected into the right sacroiliac joint. We then moved to the left sacroiliac joint.~ The skin and subcutaneous tissues were anesthetized using lidocaine 1.5% and a 25-gauge needle.~ After this, a 22- gauge spinal needle was inserted under fluoroscopic guidance into the inferior aspect of the left sacroiliac joint.~ Omnipaque dye was injected and good spread was seen throughout the joint. After this, approximately 5 mL of bupivacaine, 0.25% and dexamethasone 5 mg was incrementally injected into the left sacroiliac joint.~ The patient tolerated the procedure well with no complications. The patient was observed in the Pain Clinic and then was discharged home neurologically intact. Plan and Disposition:: Patient was discharged without incident.
== END 2025-01-23 13:49 | disposition home or self-care (01) ==
LOC: SC.PAINP 13:25
PROVIDERS: PCP Family Medicine; Visit Provider Nurse Anesthetist, Certified Registered
DX: M46.1 Sacroiliitis, not elsewhere classified (principal); Z87.891 Personal history of nicotine dependence
CPT/HCPCS: 27096; J0665; J1100; J2003

== ENCOUNTER 2025-02-06 12:01 | Emergency (ER) | payer OTHER, SELFPAY ==
--- OUTSIDE RECORDS SUMMARY | 2024-09-16 04:00 | XMS_ITS ---
Author Organization [facility] Address [address] [place] [address] Phone [phone] Care Team Providers Care Field Ironworker Name Role Phone CabreraLeeann Unavailable [phone] Migration, Provider Unavailable Unavailable REASON FOR VISIT EMR-Neal Encounters Encounter Location Date Provider Diagnosis [address] [address] 09/16/2024 Provider Migration Plan Of Treatment No Information Progress Notes * PANCHO CABRALOB: 6 (39 yo F)Acc No.[id number]:09/16/2024 Patient: KEVON GOREHEL :1985 A ge:39 Y S ex:Female Phone: Address:[address] [place] [address] [employer], [facility] [address] Subjective: * Chief Complaints: * E MR-Neal * * Date:
--- OUTSIDE RECORDS SUMMARY | 2024-09-17 04:00 | XMS_ITS ---
Author Organization [facility] Address [address] [place] [address] Phone [phone] Care Team Providers Care Peoplesoft Hcm Developer Name Role Phone Leeann Cabrera Unavailable [phone] Migration, Provider Unavailable Unavailable REASON FOR VISIT [facility] Medications Medication SIG (Take, Route, Fr equency, Duration) Notes Start Date End Date Status OLANZapine 5 MG Tablet Oral 03/12/2022 Active Social History Social History Additional Details Category Social Info Options Details Migrated Social History Migrated Social History Alcohol Intake: None 03/12/2022,Tobacco Years: Current every day smoker 03/12/2022,Smoking Status: 03/12/2022 Encounters Encounter Location Date Provider Diagnosis [address] [address] 09/17/2024 Provider Migration Plan Of Treatment No Information Progress Notes * PANCHO CABRALOB: 6 (39 yo F)Acc No.[id number]:09/17/2024 Patient: RHINA GORE :1985 A ge:39 Y S ex:Female Phone: Address:[address] [place] [address], [place], [place], [facility] Subjective: * Chief Complaints: * E MR-Neal * Medical History: Problems: Acute stroke Agoraphobia Anxiety Attention deficit hyperactivity disorder Depressive disorder Hypertensive disorder Schizophrenia * Surgical History: Hysterectomy Tubal ligation * Family History: F ather: No current problems or disability . M other: No current problems or disability .? * Social History: M igrated Social History: M igrated Social History: Alcohol Intake: None 03/12/2022,Tobacco Years: Current every day smoker 03/12/2022,Smoking Status: 03/12/2022. * Medications: T akingOLANZapine 5 MG Tablet Oral Taking OLANZapine 5 MG Tablet Oral * * Date:
[2025-02-06 12:09] VITALS: BP 114/74; PULSE 99; RESP 20; TEMP 36.9; O2SAT 99; BMI 32.9
--- NOTE | 2025-02-06 12:12 | XR_ITS ---
FINAL REPORT CLINICAL HISTORY: 1st and 2nd MC pain from injury 2 mo ago COMPARISON: None FINDINGS: Three views of the right foot show no evidence of acute displaced fracture or dislocation of the visualized bony architecture. There are severe degenerative changes of the 1st MTP joint. Mild hallux valgus deformity is noted. IMPRESSION: Degenerative and chronic changes without acute bony abnormality. Reviewed, Interpreted and Dictated by Randall Perkins MD Transcribed by Venecia Hung Authenticated and [facility]
--- NOTE | 2025-02-06 12:14 | HMH.EDGENADL ---
Discharge Plan Disposition Patient Disposition: Home, Self-Care Prescriptions Prescriptions: New ibuprofen 800 mg tablet 800 mg PO TID PRN (Reason: pain) 7 Days Qty: 20 0RF No Action desvenlafaxine succinate [Pristiq] 25 mg tablet extended release 24 hr 25 mg PO DAILY Qty: 30 2RF Rx Instructions: Take with desvenlafaxine 50 mg daily. dextroamphetamine-amphetamine [Adderall] 10 mg tablet 10 mg PO DAILY Qty: 30 0RF Rx Instructions: Take in the evening if needed. dextroamphetamine-amphetamine [Adderall] 20 mg tablet 20 mg PO BID Qty: 60 0RF Rx Instructions: administer doses at least 4-6 hours apart albuterol sulfate 90 mcg/actuation HFA aerosol inhaler 2 puff INHALATION Q4-6H PRN (Reason: shortness of breath or wheezing) Qty: 8.5 0RF pantoprazole 40 mg tablet,delayed release (DR/EC) 40 mg PO DAILY Qty: 90 2RF cyclobenzaprine 10 mg tablet 10 mg PO TID 30 Days Qty: 90 5RF clonidine HCl 0.2 mg tablet 0.2 mg PO TID Qty: 90 2RF Vraylar 4.5 mg capsule 4.5 mg PO DAILY Qty: 30 2RF mirtazapine 45 mg tablet 45 mg PO DAILY Qty: 30 2RF desvenlafaxine 50 mg tablet extended release 24 hr 50 mg PO DAILY Qty: 30 2RF alprazolam 1 mg tablet 1 mg PO BID Qty: 60 0RF Referrals Follow up/Referrals: Mg Gardner DO [Staff Physician, Orthopedics] - See instructions Claude Young MD [Primary Care Provider, Family Practice] - See instructions Activity Restrictions/Add. Instructions Additional Instructions/Restrictions: No evidence of an acute fracture or dislocation. As discussed on your second metacarpal where you are primarily having pain I suspect you have a ligamental or tendinous injury in that region. 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 I would like for you to follow-up with Dr. Gardner given the chronicity of the symptoms for this injury to be evaluated for a possible MRI. Wear your walking boot while active until that time. Clinical Impressions Clinical Impression: Foot sprain Print Language Print Language: Japanese Discharge ED Provider: Jose Graham General Adult HPI General Chief complaint: Extremity Injury, Lower Stated complaint: AO-right foot pain Time Seen by Provider: 02/06/25 12:08 History of Present Illness HPI narrative: Patient is a 39-year-old female here with persistent right foot pain after an injury that occurred 2 months ago. States she was stepping down from a stepladder when her 1st and 2nd digits bent significantly backward and had dorsiflexion manner. Had significant pain and swelling at that time and bruising but it simply has not improved and is getting worse. States that the thing that made her come to the emergency department is that she recently bought $225 pair of boots and she cannot wear them because the pain is so bad. Has not had any imaging or any evaluation for this up until this point. Related Data Previous Rx's ?Medication ?Instructions ?Recorded albuterol sulfate 90 mcg/actuation 2 puff inhalation Q4-6H PRN 08/05/23 aerosol inhaler shortness of breath or wheezing #8.5 grams pantoprazole 40 mg tablet,delayed 40 mg PO DAILY accid reflux #90 05/01/24 release tabs cyclobenzaprine 10 mg tablet 10 mg PO TID 30 days #90 tabs 06/23/24 clonidine HCl 0.2 mg tablet 0.2 mg PO TID #90 tabs 12/18/24 cariprazine 4.5 mg capsule 4.5 mg PO DAILY #30 caps 12/25/24 (Vraylar) dextroamphetamine-amphetamine 10 10 mg PO DAILY #30 tabs 01/03/25 mg tablet (Adderall) dextroamphetamine-amphetamine 20 20 mg PO BID #60 tabs 01/03/25 mg tablet (Adderall) alprazolam 1 mg tablet 1 mg PO BID #60 tabs 01/16/25 desvenlafaxine 50 mg 50 mg PO DAILY #30 tabs 01/16/25 tablet,extended release 24 hr desvenlafaxine succinate 25 mg 25 mg PO DAILY #30 tabs 01/16/25 tablet,extended release 24 hr (Pristiq) mirtazapine 45 mg tablet 45 mg PO DAILY #30 tabs 01/16/25 ibuprofen 800 mg tablet 800 mg PO TID PRN pain 7 days #20 02/06/25 tabs Allergies Allergy/AdvReac Type Severity Reaction Status Date / Time No Known Allergies Allergy Verified 01/23/25 13:29 [facility] Disclaimer: The information contained in this section may have been updated after the patient was seen, as this information can be updated by other users. Medical History History of gastroesophageal reflux (GERD) Asthma Leg cramping Attention deficit Premenstrual dysphoric disorder Chronic pain after traumatic injury PTSD (post-traumatic stress disorder) Mood disorder Anxiety Surgical History History of colonoscopy H/O tubal ligation History of tonsillectomy Family History Other Family history of multiple sclerosis Social History Smoking Status: Never smoker alcohol intake: never substance use type: denies use current occupational status: unemployed Travel in the last 8 weeks?: None household members: none housing: house Have you lived/traveled outside US in past 30 days?: No Contact w/someone who lives/traveled outside US past 30 days?: No Exposure to someone with infectious disease in past 14 days?: No Do you have a fever (greater than 100.4 F or 38 C)?: No Have you tested positive for COVID-19?: No Exposed to someone with COVID-19 in past 14 days?: No Do you have a sore throat?: No Do you have a cough?: No Do you have any weakness?: No Do you have any diarrhea?: No Are you experiencing any unusual bleeding?: No Do you have any muscle aches/pain?: No Do you have any abdominal pain?: No Are you experiencing loss of taste or smell?: No Other Medical History Have you received the Flu Vaccine for this season: No Have you received the Pneumonia Vaccine: No ROS Obtained: Yes All systems reviewed & no additional complaints except as documented Physical Exam General General appearance: alert and in no apparent distress Respiratory Respiratory exam: Present normal lung sounds bilaterally Cardiovascular Cardiovascular exam: Present regular rate Extremities Exam Extremities exam: Present other (Patient has significant tenderness at the 1st and 2nd metacarpal phalangeal joints and primarily over the second metacarpal. There is some soft tissue swelling. She has normal extension and flexion in all digits good capillary refill) Neurological Exam Neurological exam: Present alert and oriented X3 Medical Decision Making Medical Records Screening: Per USPSTF and CDC recommendations, given the prevalence of disease in our region, it is our hospital?s policy to screen for HIV and viral Hepatitis for all patients aged 18 and over and those with ongoing risk factors. Melecio Inquiry Pt receiving controlled substance: No Vital Signs: 02/06/25 12:09 02/06/25 12:15 Temperature 98.5 F 98.4 F Temperature Source Oral Pulse Rate 85 Pulse Rate [Right Radial] 99 H Respiratory Rate 20 20 Blood Pressure 114/81 Blood Pressure [Right Arm] 114/74 Blood Pressure Mean [Right Arm] 87 Blood Pressure Source Automatic Cuff Blood Pressure Source [Right Arm] Automatic Cuff Blood Pressure Position Sitting Blood Pressure Position [Right Arm] Sitting 02 Sat by Pulse Oximetry 99 100 Oxygen Delivery Method Room Air Room Air Orders (Tests/Meds): ORDERS Category Date Time Status Foot XR right minimum 3 views [XR foot RT min 3V] Stat Exams 02/06/25 12:12 Completed Medical Decision Narrative: 39-year-old with above history and physical differential includes fracture dislocation ligamental or tendon injury etc. Will get a plain film. Most likely she damaged her soft tissue structures and will need to be immobilized and follow-up with orthopedic surgery for possible MRI given the fact that this has been ongoing for 2 months. Reassessment 1:55 PM patient's x-ray was performed I personally interpreted shows chronic degenerative and severe changes in the first MTP joint but no acute fractures no acute fractures or dislocations and the location of the pain. Will treat this as a ligamental/tendinous injury with a hard soled shoe/boot to have the patient walk on this and follow-up with orthopedic surgery for evaluation of possible MRI. NSAIDs prescribed patient discharged in stable condition. Critical Care Critical Care Time Critical Care Time: No
[2025-02-06 12:15] VITALS: BP 114/81; PULSE 85; RESP 20; TEMP 36.9; O2SAT 100
--- OUTSIDE RECORDS SUMMARY | 2025-02-06 12:18 | XMS_ITS | Clinical Summary ---
Author Organization [facility] Address [address] [place] [address] Phone Care Team Providers Care Organ Builder Name Role Phone Pravin Mathew MD Primary Care Physician [ ] Conditions or Problems Problem Name Problem Code Onset Date Status Entry Date Provider Comment Standard Description Annotate Bronchitis, acute 29902479 (SNOMED CT) 03/05 Inactive 03/05 Pravin Mathew MD Acute bronchitis HEPATITIS C NOS B19.20 (ICD-10-CM ) 11/08 Active 11/08 Pravin Mathew MD Unspecified viral hepatitis C without hepatic coma FAMILY PLANNING 630545468 (SNOMED CT) 10/11 Active 10/11 Pravin Mathew MD Contraception care History of SUBSTANCE ABUSE 19326623 (SNOMED CT) 10/11 Active 10/11 Pravin Mathew MD Substance abuse History of BACK PAIN 759163070 (SNOMED CT) 10/11 Active 10/11 Pravin Mathew MD Backache NAUSEA ALONE 101435580 (SNOMED CT) 10/11 Active 10/11 Pravin Mathew MD Nausea History of ANXIETY DISORDER 264909649 (SNOMED CT) 10/11 Active 10/11 Pravin Mathew MD Anxiety disorder GERD 179376331 (SNOMED CT) 10/11 Active 10/11 Pravin Mathew MD Gastroesophageal reflux disease History of ADD 80270373 (SNOMED CT) 10/11 Active 10/11 Pravin Mathew MD Attention deficit hyperactivity disorder, predominantly inattentive type TOBACCO USE DIS F17.200 (ICD-10-CM ) 10/11 Active 10/11 Pravin Mathew MD Nicotine dependence, unspecified, uncomplicated Medications Medication Instructions Start Date Stop Date Generic Name [facility] Provider BUPRENORPHINE HCL 8 MG SUBL 1 TAB 2 TIMES / DAY BUPRENORPHINE HCL 01281760204 Yary Vicente SANTI KLONOPIN 1 MG TABS 1 TAB Q8H PRN CLONAZEPAM [id number] Yary Vicente SANTI DEPO-PROVERA 150 MG/ML SUSP FOR IM INJECTION MEDROXYPROGESTERONE ACETATE 15396837746 Pravin Mathew MD DIFLUCAN 150 MG TABS TAKE 1 TAB Q72H FOR 3 DOSES FLUCONAZOLE 17748057010 Pravin Mathew MD IBUPROFEN 600 MG TABS 1 TAB 3 TIMES / DAY WITH FOOD PRN IBUPROFEN 41910690404 Pravin Mathew MD KLONOPIN 1 MG TABS 1 TAB Q8H PRN CLONAZEPAM [id number] Pravin Mathew MD ADDERALL 30 MG TABS 1 TAB 2 TIMES / DAY, 4-6 HRS APART AMPHETAMINE-DEXTROAMP HETAMINE 60922763627 Yary Vicente SANTI VENTOLIN HFA 108 (90 Base) MCG/ACT AERS 2 PUFFS Q4H PRN ALBUTEROL SULFATE 60058503872 Pravin Mathew MD ZITHROMAX Z-CLARA 250 MG TABS Take 2 tablets by mouth on day 1 then take 1 tablet once a day thereafter AZITHROMYCIN 10481983939 Pravin Mathew MD BUPRENORPHINE HCL 8 MG SUBL 1 TAB 2 TIMES / DAY BUPRENORPHINE HCL 12498924322 Pravin Mathew MD BUPRENORPHINE HCL 8 MG SUBL 1 TAB 2 TIMES / DAY BUPRENORPHINE HCL 20464869943 Pravin Mathew MD DIFLUCAN 150 MG TABS TAKE 1 TAB DIRECTED FLUCONAZOLE 88637710874 Pravin Mathew MD DEPO-PROVERA 150 MG/ML SUSP FOR IM INJECTION MEDROXYPROGESTERONE ACETATE 50699868712 Pravin Mathew MD KLONOPIN 1 MG TABS 1 TAB Q8H PRN CLONAZEPAM 33948421401 Pravin Mathew MD KLONOPIN 1 MG TABS 1 TAB Q8H PRN CLONAZEPAM 37033127796 Pravin Mathew MD ADDERALL 20 MG TABS 1 TAB 2 TIMES/DAY, 4-6 HRS APART AMPHETAMINE-DEXTROAMP HETAMINE 22285623811 Pravin Mathew MD PROMETHAZINE HCL 25 MG TABS 1 TAB 2 TIMES / DAY PRN PROMETHAZINE HCL 41048585562 Pravin Mathew MD ADDERALL 10 MG TABS 1 TAB 2 TIMES / DAY, 4-6 HRS APART AMPHETAMINE-DEXTROAMP HETAMINE 03295691482 Pravin Mathew MD BUPRENORPHINE HCL 8 MG SUBL 1 TAB 2 TIMES / DAY BUPRENORPHINE HCL 90038350443 Pravin Mathew MD PROMETHAZINE HCL 12.5 MG TABS 1 TAB 2 TIMES / DAY PRN PROMETHAZINE HCL 86397653897 Pravin Mathew MD ADDERALL XR 10 MG RA30C-NMP 1 CAP DAILY AMPHETAMINE-DEXTROAMP HETAMINE 86402421640 Pravin Mathew MD KLONOPIN 0.5 MG TABS 1 TAB Q8H PRN CLONAZEPAM [id number] Pravin Mathew MD OMEPRAZOLE 20 MG TBEC 1 TAB QAM BEFORE BRKFST OMEPRAZOLE 97796410347 Pravin Mathew MD DEPO-PROVERA 150 MG/ML SUSP FOR IM INJECTION MEDROXYPROGESTERONE ACETATE 30411838113 Pravin Mathew MD Medications Administered No information [...] Care Type Date Detail Referral Gastroenterology Referral [facility], [address], [place], [address] Referral [facility], [address] [place], [address] Referral [facility], [address] [place], [address] Pending order 43747 ESTAB efoc /efoc/low Pending order Urine Drug Scree n with Confirmation Pending order [id number] ESTAB efoc /efoc/low Pending order Urine Drug Scree n w/o Confirmation Pending order 80556 ESTAB efoc /efoc/low Pending order Psych Dx Eval WI TH E&M -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[employer] ADS Only Pending order HCG Qualitative Pending order B12 Pending order CBC no diff Pending order CMP Pending order Lipid Panel Pending order Hep C Ab Pending order HCG Qualitative Pending order TSH reflex to fr ee T4 Pending order Vitamin D 25 Hyd leonel Pending order HIV Antibody -co nsent required Patient education Medications Procedures Code Procedure Name Date Entry Date 31093 [facility] # Urine Drug Screen with Confirmation 29604 [facility] # Urine Drug Screen w/o Confirmation CPT-95179 Psych Dx Eval WITH E&M -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 10/11 HP [facility] 8435 [facility] Test # HCG Qualitative 927 [facility] # B12 [facility]# 1759 CBC [place] diff 75330 [facility] Test # CMP 7 97064 [facility] # Lipid Panel 7 8472 [facility] # Hep C Ab 8435 [facility] # HCG Qualitative 32548 [facility] # TSH reflex to free T4 18660 [facility] # Vitamin D 25 Hydroxy 2 83137 [facility] # HIV Antibody -consent required [...]
--- OUTSIDE RECORDS SUMMARY | 2025-02-06 12:19 | XMS_ITS | Patient Health Record ---
Author Organization [facility] Address [address] [place] [address] Care Team Providers Care Wire Turning Machine Operator Name Role Phone KENNY CASTILLO Primary Care [...] Date ANTHEM [employer] [address] [address] [place] [address] [id number] Elin Shelley Self - patient is the insured Medications Administered Medication Instructions Date of Administration Dosage Notes Depo-Provera 04/27/2022 1 mL Depo-Provera 07/08/2022 1 mL Medical (General) History Surgical History Surgery Date(Month/Year) tubal ligation
--- OUTSIDE RECORDS SUMMARY | 2025-02-06 12:19 | XMS_ITS | Patient Health Record ---
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 [address] [place] [address] 09/16/[address] [facility] [address] [place] [address] 09/17/2024 Provider Migration Plan Of Treatment No Information Insurance Providers Payer Name Payer Address Payer Phone Subscriber Number Group Number Insured Name Patient Relationship to Insured Coverage Start Date Coverage End Date [place] [address] [address] [place] [address] [id number] [id number] Self - patient is the insured Medical (General) History Surgical History Surgery Date(Month/Year) Hysterectomy Tubal ligation
--- OUTSIDE RECORDS SUMMARY | 2025-02-06 12:19 | XMS_ITS | Continuity of Care Document ---
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 Available Not Available No t Available Differin 0.1 % topical gel apply a thin layer to the affected area(s) by topical route once daily before bedtime for 30 days 07/22 completed Differin 0.1 % topical gel;Jacques rded Status: Recorded on: 07/22/19 12 11:22AM; Disconti nued Status: Disconti nued on: 07/23/19 12 12:09PM; User: Ramon casiano Completkeyla on: 10/20/19 12;Indic ation: Acne Vulgaris - (12.7061 00);Prin silviano: 07/22/19 12 Not Available Not Available Not Available clonazepa m 2 mg tablet TAKE 1 TABLET BY MOUTH EVERY NIGHT AT BEDTIME ; ADMINIST ER 30 MINUTES BEFORE BEDTIME active Not Available Not Available No t Available promethaz ine 25 mg tablet TAKE ONE TABLET BY MOUTH EVERY 6 HOURS NEEDED FOR nausea AND vomiting 01/09 completed Not Available Not Available Not Available ibuprofen 400 mg tablet 01/16 completed Not Available Not Available Not Available benztropi ne 1 mg tablet TAKE 1 TABLET BY MOUTH TWICE DAILY 01/16 completed Not Available Not Available Not Available nicotine 21 mg/24 hr daily transderm al patch 09/30 completed Not Available Not Available Not Available phenobarb ital 64.8 mg tablet 01/16 completed Not Available Not Available Not Available ibuprofen 200 mg tablet 09/30 completed Not Available Not Available Not Available docusate sodium 100 mg capsule 09/30 completed Not Available Not Available Not Available pramipexo le 0.25 mg tablet Take by oral route for 24 days. 07/20 completed Not Available Not Available Not Available gabapenti n 300 mg capsule 01/09 completed Not Available Not Available Not Available omeprazol e 20 mg capsule,d elayed release Take by oral route for 15 days. 01/26 completed Not Available Not Available Not Available mirtazapi ne 45 mg tablet TAKE 1 TABLET BY MOUTH EVERY DAY active Not Available Not Available No t Available Cleocin 2 % vaginal cream insert 1 applicat orful (100 mg) by vaginal route once daily at bedtime for 7 days and no sexual intercou rse until medicati on is finished 11/20 completed Cleocin 2 % vaginal cream;Pr escribe Status: Prescrib ed on: 02/26/19 15 4:37PM;D iscontin ued Status: Disconti nued on: 11/21/19 15 3:36PM;U ser: turnerk; Est. Completi on: 03/05/19 15;Pharm acyVerif ied: 02/26/19 15 4:37PM;P rinted: 02/27/19 15 Not Available Not Available Not Available cephalexi n 500 mg tablet take 1 tablet (500 mg) by oral route every 12 hours for 7 days 03/11 completed cephalex in 500 mg oral tablet;R ecorded Status: Recorded on: 03/03/19 13 5:25PM;D iscontin ued Status: Disconti nued on: 03/11/19 13 11:18AM; User: sonia Shaw on: 03/10/19 13;Indic ation: Dysuria - (788.1); Printed: 03/03/19 13 Not Available Not Available Not Available Provera 10 mg tablet 03/17 completed Provera 10 mg oral tablet;R ecorded Status: Recorded on: 04/11/19 11 11:20AM; Disconti nued Status: Disconti nued on: 03/17/19 12 2:43PM;U ser: [email or web address] Not Available Not Available Not Available amoxicill in 250 mg capsule Take ONE capsule by MOUTH TWICE DAILY take UNTIL GONE 01/16 completed Not Available Not Available Not Available hydroxyzi ne HCl 25 mg tablet take 1 tablet (25 mg) by oral route 3 times per day prn anxiety 03/16 completed Not Available Not Available Not Available Clindagel 1 % topical gel, once daily apply a thin layer to the affected area(s) by topical route once daily 12/14 completed Clindage l 1 % topical gel;Jacques rded Status: Recorded on: 07/23/19 12 12:09PM; Disconti nued Status: Disconti nued on: 12/15/19 12 2:44PM;U ser: bakerc Not Available Not Available Not Available mupirocin 2 % topical ointment APPLY topicall y TO affected AREA THREE TIMES DAILY 01/09 completed Not Available Not Available Not Available diclofena c sodium 50 mg tablet,de layed release 08/25 completed Not Available Not Available Not Available mirtazapi ne 15 mg tablet Take by oral route for 30 days. 12/25 completed Not Available Not Available Not Available gabapenti n 100 mg capsule TAKE 1 CAPSULE BY MOUTH EVERY NIGHT AT BEDTIME 01/09 completed Not Available Not Available Not Available lorazepam 1 mg tablet TAKE ONE TABLET BY MOUTH TWICE DAILY 01/26 completed Not Available Not Available Not Available selenium sulfide 2.5 % shampoo apply to the affected area(s) by topical route once daily 11/04 completed selenium sulfide 2.5 % topical shampoo; Recorded Status: Recorded on: 06/13/19 11 1:54PM;D iscontin ued Status: Disconti nued on: 11/05/19 11 8:33AM;U ser: tuckerd; Indicati on: Tinea Versicol or - ();Prin silviano: 06/13/19 11 Not Available Not Available Not Available ibuprofen 600 mg tablet TAKE ONE TABLET BY MOUTH EVERY 6 HOURS NEEDED 12/25 completed Not Available Not Available Not Available cefuroxim e axetil 500 mg tablet 01/09 completed Not Available Not Available Not Available polyethyl kevon glycol 3350 17 gram/dose oral powder 01/09 completed Not Available Not Available Not Available levofloxa shruti 500 mg tablet 07/25 completed Not Available Not Available Not Available methylpre dnisolone 4 mg tablets in a dose pack USE as directed 05/10 completed Not Available Not Available Not Available albuterol sulfate HFA 90 mcg/actua tion aerosol inhaler INHALE 2 PUFFS BY MOUTH EVERY 4 TO 6 HOURS NEEDED FOR SHORTNES S OF BREATH OR WHEEZING 09/11 completed Not Available Not Available Not Available dextroamp hetamine- amphetami ne ER 30 mg 24hr capsule,e xtend release Take by oral route for 30 days. 09/11 completed Not Available Not Available Not Available propranol ol 20 mg tablet 01/26 completed Not Available Not Available Not Available brompheni ramine-ps eudoephed rine-DM 2 mg-30 mg-10 mg/5 mL oral syrup 01/26 completed Not Available Not Available Not Available ondansetr on 4 mg disintegr ating tablet TAKE 2 TABLETS BY MOUTH THREE TIMES A DAY NEEDED 05/10 completed Not Available Not Available Not Available cefdinir 300 mg capsule 01/09 completed Not Available Not Available Not Available topiramat e 100 mg tablet Take ONE-HALF tablet by MOUTH FOR ONE WEEK, THEN increase TO ONE tablet by MOUTH there AFTER 01/16 completed Not Available Not Available Not Available multivita min capsule take 1 capsule by oral route once daily for 30 days 06/22 completed multivit allan Oral Capsule; Recorded Status: Recorded on: 03/31/19 12 11:08AM; Disconti nued Status: Disconti nued on: 06/23/19 12 11:23AM; User: mateo Shaw on: 03/25/19 13;Print ed: 03/31/19 12 Not Available Not Available Not Available sertralin e 50 mg tablet TAKE ONE HALF (1/2) TABLET ONCE DAILY FOR THREE (3) DAYS THEN ONE (1) TABLET FOR THREE (3) DAYS THEN ONE (1) AND ONE HALF (1/2) TABLETS DAILY THERE AFTER 07/20 completed Not Available Not Available Not Available medroxypr ogesteron e 150 mg/mL intramusc ular suspensio n INJECT ONE (1) MILLILIT ER BY INTRAMUS CULAR ROUTE EVERY THREE (3) MONTHS active Not Available Not Available No t Available doxycycli ne hyclate 100 mg tablet 12/25 completed Not Available Not Available Not Available dicyclomi ne 10 mg capsule TAKE 1 CAPSULE THREE TIMES A DAY NEEDED 01/16 completed Not Available Not Available Not Available Minocin 50 mg capsule take 1 capsule (50 mg) by oral route 2 times per day for 30 days 03/03 completed Minocin 50 mg oral capsule; Recorded Status: Recorded on: 07/22/19 12 11:22AM; Disconti nued Status: Disconti nued on: 03/03/19 13 4:12PM;U ser: gored;Es t. Paulinai on: 10/20/19 12;Print ed: 09/21/19 12 Not Available Not Available Not Available Xanax 1 mg tablet take 1 tablet (1 mg) by oral route 3 times per day for 30 days 04/11 completed Xanax 1 mg oral tablet;R ecorded Status: Recorded on: 01/20/20 08 5:17PM;D iscontin ued Status: Disconti nued on: 04/11/19 11 11:20AM; User: mateo Shaw on: 02/18/19 09;Print ed: 01/20/20 08 Not Available Not Available Not Available dextroamp hetamine- amphetami ne 5 mg tablet Take by oral route for 30 days. 06/23 completed Not Available Not Available Not Available loratadin e 10 mg tablet 01/16 completed Not Available Not Available Not Available naproxen 500 mg tablet TAKE ONE TABLET BY MOUTH TWICE DAILY 01/09 completed Not Available Not Available Not Available diazepam 5 mg tablet TAKE ONE TABLET BY MOUTH TWICE DAILY NEEDED FOR ANXIETY 01/26 completed Not Available Not Available Not Available amoxicill in 875 mg-potass ium clavulana te 125 mg tablet Take 1 tablet every 12 hours by oral route. 01/09 completed Not Available Not Available Not Available phenobarb ital 32.4 mg tablet TAKE 2 TABS (64.8MG) BY MOUTH EVERY 8 HRS X 3 DOSES, THEN 1 AND 1/2 TABS EVERY 8 HOURS X 3 DOSES,1 EVERY 8 HOURS X 3 DOSES ,1/2 EVERY 8 HOURS X 3. 01/16 completed Not Available Not Available Not Available amoxicill in 500 mg-potass ium clavulana te 125 mg tablet TAKE ONE TABLET BY MOUTH TWICE DAILY FOR 14 DAYS 01/09 completed Not Available Not Available Not Available nicotine 7 mg/24 hr daily transderm al patch 09/14 completed Not Available Not Available Not Available buspirone 15 mg tablet 01/16 completed Not Available Not Available Not Available hydroxyzi ne pamoate 25 mg capsule 01/26 completed Not Available Not Available Not Available Vitamin 27 mg iron-0.8 mg tablet take 1 tablet by oral route once daily for 30 days 09/20 completed Vitamin 27-0.8 mg oral tablet;R ecorded Status: Recorded on: 09/17/19 12 4:15PM;D iscontin ued Status: Disconti nued on: 09/21/19 12 3:22PM;U ser: nino; Est. Gallardoi on: 11/16/19 12;Print ed: 09/21/19 12 Not Available Not Available Not Available Tablet 28 mg iron-800 mcg take 1 tablet by oral route for 30 days 06/22 completed Tablet 28 mg iron- 800 mcg oral tablet;R ecorded Status: Recorded on: 03/05/19 12 4:21PM;D iscontin ued Status: Disclyudmilai numariann on: 06/23/19 12 11:23AM; User: Kaushik Fall on: 04/04/19 12;Print ed: 03/05/19 12 Not Available Not Available Not Available azithromy shruti 500 mg tablet TAKE ONE TABLET BY MOUTH DAILY FOR 3 DAYS 01/26 completed Not Available Not Available Not Available medroxypr ogesteron e 150 mg/mL intramusc ular syringe 09/30 completed Not Available Not Available Not Available atomoxeti ne 40 mg capsule 01/26 completed Not Available Not Available Not Available buprenorp rachel 2 mg-naloxo ne 0.5 mg sublingua l tablet TAKE ONE TABLET UNDER THE TONGUE ONCE DAILY DIRECTED ; take with EIGHT MG tablet FOR total of 10 MG 01/16 completed Not Available Not Available Not Available buprenorp rachel 8 mg-naloxo ne 2 mg sublingua l tablet take TWO AND ONE-HALF tablets UNDER THE TONGUE ONCE DAILY 12/20 completed Not Available Not Available Not Available buprenorp rachel HCl 8 mg sublingua l tablet 01/26 completed Not Available Not Available Not Available cyclobenz aprine 5 mg tablet 01/09 completed Not Available Not Available Not Available ciproflox acin 0.3 %-dexamet hasone 0.1 % ear drops,euegnio pension 01/09 completed Not Available Not Available Not Available potassium chloride ER 10 mEq tablet,ex tended release(p art/cryst ) 01/18 completed Not Available Not Available Not Available nitrofura ntoin monohydra te/macroc rystals 100 mg capsule take 1 capsule (100 mg) by oral route every 12 hours with food for 7 days 01/16 completed Not Available Not Available Not Available duloxetin e 30 mg capsule,d elayed release Take 1 capsule every day by oral route for 90 days. 06/23 completed Not Available Not Available Not Available duloxetin e 60 mg capsule,d elayed release TAKE ONE CAPSULE BY MOUTH EVERY MORNING 06/23 completed Not Available Not Available Not Available Librax (with methscopo meir) 5 mg-2.5 mg capsule 1 bid 07/18 completed librax;R ecorded Status: Recorded on: 07/03/19 11 10:39AM; Disconti nued Status: Disconti nued on: 07/19/19 11 11:29AM; User: mateo marshallEstWil Completkeyla on: 07/13/19 11;Indic ation: - (-5) Not Available Not Available Not Available Lyrica 75 mg capsule TAKE ONE CAPSULE BY MOUTH EVERY 12 HOURS 11/16 completed Not Available Not Available Not Available chlorhexi dine gluconate 0.12 % mouthwash 12/25 completed Not Available Not Available Not Available citalopra m 01/19 completed Citalopr am Oral;Rec orded Status: Recorded on: 01/20/20 08 4:48PM;D iscontin ued Status: Disconti nued on: 01/20/20 08 5:17PM;U ser: [email or web address] Not Available Not Available Not Available Ceftin 1 bid 11/04 completed ceftin 500mg;Re corded Status: Recorded on: 09/18/19 11 4:03PM;D iscontin ued Status: Disconti nued on: 11/05/19 11 8:33AM;U ser: mateo marshallEstWil Completi on: 09/25/19 11;Indic ation: - (-5) Not Available Not Available Not Available diclofena c sodium take 1 tablet (25 mg) by oral route 3 times per day 12/27 completed diclofen ac sodium 25 mg Oral tablet,d elayed release (DR/EC); Recorded Status: Recorded on: 04/13/19 13 3:36PM;D iscontin ued Status: Disconti nued on: 12/28/19 14 10:00AM; User: mateo marshallEst. Completi on: 04/21/19 13;Indic ation: - (-5) Not Available Not Available Not Available diazepam 1 qhs 11/04 completed diazepam 5 mg;Recor ded Status: Recorded on: 10/18/19 11 9:59AM;D iscontin ued Status: Disconti nued on: 11/05/19 11 10:14AM; User: mateo case;Est. Completi on: 11/17/19 11;Indic ation: - (-5) Not Available Not Available Not Available paromomyc in one applicat ion q hs x 2 weeks 12/12 completed paromomy shruti 250 mg per applicat ion;comm ent: medicine not availabl e per pharmacy ;Recorde d Status: Recorded on: 12/13/19 15 11:48AM; Disconti nued Status: Disconti nued on: 12/13/19 15 2:51PM;U ser: tuckerd; Est. Completi on: 12/27/19 15;Indic ation: trichomo nal vulvovag initis - (-5) Not Available Not Available Not Available Keflex 1 tid 03/03 completed keflex 500mg;Re corded Status: Recorded on: 12/15/19 12 3:20PM;D iscontin ued Status: Disconti nued on: 03/03/19 13 4:12PM;U ser: markdejonbe evie;Est. Completi on: 12/25/19 12;Indic ation: - (-5);Elsa nted: 12/15/19 12 Not Available Not Available Not Available Ritalin 1 [employer] business [employer] 2 hr 03/17 completed ritalin 10mg;Rec orded Status: Recorded on: 10/18/19 11 9:59AM;D iscontin ued Status: Disconti nued on: 03/17/19 12 2:43PM;U ser: lesleybe evie;Est. Completi on: 11/17/19 11;Indic ation: - (-5) Not Available Not Available Not Available Xanax 1 tid 06/22 completed xanax 1 mg;Recor ded Status: Recorded on: 05/26/19 12 2:54PM;D iscontin ued Status: Disconti nued on: 06/23/19 12 11:23AM; User: mateo case;Est. Completi on: 07/25/19 12;Indic ation: None Selected - (-5) Not Available Not Available Not Available Macrobid take 1 capsuleb y oral route every 12 hours for 7 days 12/07 completed Macrobid Oral capsule; Recorded Status: Recorded on: 09/21/19 12 3:22PM;D iscontin ued Status: Disconti nued on: 12/08/19 12 1:07PM;U ser: neuss;Es t. Completi on: 09/28/19 12 Not Available Not Available Not Available Topamax 1 qd 04/11 completed topromax 100mg;Re corded Status: Recorded on: 05/30/19 09 5:30PM;D iscontin ued Status: Disconti nued on: 04/11/19 11 11:20AM; User: mateo Shaw on: 12/26/19 09;Indic ation: - (-5) Not Available Not Available Not Available Vitamin take 1 tabletby oral route daily for 30 days 03/03 completed Vitamin Oral tablet;R ecorded Status: Recorded on: 09/21/19 12 3:22PM;D iscontin ued Status: Disconti nued on: 03/03/19 13 4:12PM;U ser: neuss;Es t. Completi on: 11/20/19 12 Not Available Not Available Not Available Adderall XR 1 qd 06/22 completed adderal xr 30mg;Rec orded Status: Recorded on: 03/10/19 12 1:37PM;D iscontin ued Status: Disconti nued on: 06/23/19 12 11:23AM; User: mateo Alex Completkeyla on: 04/09/19 12;Indic ation: - (-5) Not Available Not Available Not Available Suboxone 12/27 completed Suboxone Sublingu al;Recor ded Status: Recorded on: 03/03/19 13 4:58PM;D iscontin ued Status: Disconti nued on: 12/28/19 14 10:00AM; User: ibis Not Available Not Available Not Available Subutex 1 po bid 01/02 completed Subutex oral 8mg;Jacques rded Status: Recorded on: 12/28/19 14 10:00AM; Disconti nued Status: Disconti nued on: 01/03/20 15 3:55PM;U ser: chen Sagastume on: - (-5) Not Available Not Available Not Available Cymbalta Take 1 tablet by oral route once a day for 30 days 12/27 completed cymbalta Oral oral 60mg;Rec orded Status: Recorded on: 03/11/19 13 11:59AM; Disconti nued Status: Disconti nued on: 12/28/19 14 10:00AM; User: twila Est. Completi on: 06/10/19 13 Not Available Not Available Not Available Mucinex D 1 bid 03/17 completed mucinex d;Record ed Status: Recorded on: 10/09/19 11 4:55PM;D iscontin ued Status: Disconti nued on: 03/17/19 12 2:43PM;U ser: mateo marshallEstWil Completi on: 10/16/19 11;Indic ation: - (-5);Elsa nted: 10/09/19 11 Not Available Not Available Not Available cephalexi n 750 mg capsule 01/26 completed Not Available Not Available Not Available Sronyx 0.1 mg-20 mcg tablet take 1 tablet by oral route once daily for 28 days 03/17 completed Sronyx 0.1-20 mg-mcg oral tablet;R ecorded Status: Recorded on: 01/13/20 11 5:00PM;D iscontin ued Status: Disconti nued on: 03/17/19 12 2:43PM;U ser: chen Est. Completi on: 02/10/20 11;Indic ation: Pregnanc y Contrace ption - ([id number].V259 00);Prin silviano: 01/13/20 11 Not Available Not Available Not Available Seasoniqu e 0.15 mg-30 mcg (84)/10 mcg(7) tablets,3 month dose pack take 1 tablet by oral route once daily for 91 days 01/12 completed Seasoniq ue 0.15 mg-30 mcg (84)/10 mcg (7) oral tablets, dose pack,3 month;Re corded Status: Recorded on: 06/13/19 11 1:54PM;U ser: nino; Est. Completi on: 12/12/19 11;Print ed: 06/13/19 11 Not Available Not Available Not Available tramadol ER 100 mg tablet,ex tended release 24 hr TAKE 1 TABLET BY MOUTH EVERY DAY 09/14 completed Not Available Not Available Not Available quetiapin e 50 mg tablet take one tablet BID 01/16 completed Not Available Not Available Not Available lorata-di ne D 10 mg-240 mg tablet,ex tended release take 1 tablet by oral route once daily for 20 days 05/25 completed lorata-d ine D 10-240 mg oral tablet extended release 24 hr;Recor ded Status: Recorded on: 03/31/19 12 11:36AM; Disconti nued Status: Disconti nued on: 05/26/19 12 2:46PM;U ser: bebetost;E st. Completi on: 04/20/19 12 Not Available Not Available Not Available Vaqta (PF) 50 unit/mL intramusc ular syringe 06/30 completed Not Available Not Available Not Available omeprazol e 20 mg tablet,de layed release 01/16 completed Not Available Not Available Not Available desvenlaf axine succinate ER 50 mg tablet,ex tended release 24 hr TAKE 1 TABLET BY MOUTH EVERY DAY active Not Available Not Available No t Available desvenlaf axine succinate ER 100 mg tablet,ex tended release 24 hr TAKE 1 TABLET BY MOUTH EVERY DAY active Not Available Not Available No t Available melatonin 5 mg tablet 09/30 completed Not Available Not Available Not Available cholecalc iferol (vitamin D3) 50 mcg (2,000 unit) tablet 09/30 completed Not Available Not Available Not Available buprenorp rachel 2 mg-naloxo ne 0.5 mg sublingua l film DISSOLVE 1 FILM UNDER THE TONGUE TWICE DAILY 01/09 completed Not Available Not Available Not Available buprenorp rachel 8 mg-naloxo ne 2 mg sublingua l film Place by sublingu al route for 7 days. 01/09 completed Not Available Not Available Not Available Plus (calcium carbonate ) 27 mg iron-1 mg tablet TAKE ONE TABLET BY MOUTH DAILY 12/27 completed Plus (calcium carb) 27 mg iron- 1 mg oral tablet;R ecorded Status: Recorded on: 02/05/20 12 8:32AM;D iscontin ued Status: Disconti nued on: 12/28/19 14 10:00AM; User: Cecilia t. Completi on: 03/06/19 13 Not Available Not Available Not Available Dayana DM Cough and Chest one tsp qid prn 04/15 completed robituss in dm standard ;Recorde d Status: Recorded on: 03/31/19 13 1:08PM;D iscontin ued Status: Disconti nued on: 04/16/19 13 2:19PM;U ser: patsy; Est. Completi on: 04/07/19 13;Indic ation: cough - (-5) Not Available Not Available Not Available vilazodon e 20 mg tablet TAKE ONE (1) TABLET BY MOUTH EVERY DAY WITH FOOD 10/17 completed D/C PER PT Not Available Not Available Not Available Mucus DM 30 mg-600 mg tablet,ex tended release TAKE ONE TABLET BY MOUTH TWICE DAILY 01/26 completed Not Available Not Available Not Available Linzess 1 po qd 12/27 completed Linzess 145mcg;R ecorded Status: Recorded on: 03/11/19 13 12:08PM; Disconti nued Status: Disconti nued on: 12/28/19 14 10:00AM; User: Kaushik st. Completi on: 04/10/19 13;Indic ation: Consitpa tion - (-5) Not Available Not Available Not Available Krupa-D one bid 05/27 completed krupa d 12 hr.;Jacques rded Status: Recorded on: 03/31/19 13 1:08PM;D iscontin ued Status: Disconti nued on: 05/28/19 13 1:57PM;U ser: patsy; Est. Completi on: 04/10/19 13;Indic ation: sinus - (-5) Not Available Not Available Not Available Zofran (base) 1 q8h prn nausea 01/17 completed zofran 4mg;Jacques rded Status: Recorded on: 12/30/19 12 1:35PM;D iscontin ued Status: Disconti nued on: 01/18/20 12 4:32PM;U ser: mateo case;Est. Completi on: 01/29/20 12;Indic ation: - (-5) Not Available Not Available Not Available desvenlaf axine succinate ER 25 mg tablet,ex tended release 24 hr TAKE 1 TABLET BY MOUTH EVERY DAY active Not Available Not Available No t Available naloxone 4 mg/actuat ion nasal spray Take by nasal route for 15 days. active Not Available Not Available No t Available Vraylar 6 mg capsule Take by oral route for 28 days. 06/23 completed Not Available Not Available Not Available Vraylar 1.5 mg capsule 12/25 completed Not Available Not Available Not Available Vraylar 4.5 mg capsule TAKE 1 TABLET BY MOUTH EVERY DAY active Not Available Not Available No t Available Vraylar 3 mg capsule TAKE ONE (1) CAPSULE BY MOUTH EVERY DAY active Not Available Not Available No t Available Sublocade 300 mg/1.5 mL solution, extended release subcutane ous syringe INJECT 300MG SUBCUTAN EOUSLY ONCE MONTHLY 12/25 completed Not Available Not Available Not Available Sublocade 100 mg/0.5 mL solution, extended release subcutane ous syringe 12/25 completed Not Available Not Available Not Available Tab-A-Vit e 400 mcg tablet 09/30 completed Not Available Not Available Not Available Vitals Date Recorded Body height Body mass index (BMI) Body weight Pain severity - 0-10 verbal numeric rating [Score] - Reported Systolic And Diastolic Provider Name and Address Organization Details Last Updated DateTime 12/20/2024 160.02 cm 33.2 kg/m2 86540.93 g 0 128/84 mm[Hg] Rosalee Sanchez [place] - [facility] 10:05:57 Social History Question Answer Notes LastModified by Organization Details LastModified Time Tobacco Smoking Status Former Smoker Debo Calderón null, [place] - [facility] 05/15/2024 11:16:57 Do You Have An Advance Directive? No Information not available 09/14/2016 Are You Blind Or Do You Have Difficulty Seeing? No [email or web address] Information not available 03/18/2023 Is Blood Transfusion Acceptable In An Emergency? Yes Information not available 05/15/2024 What Is Your Level Of Caffeine Consumption? Moderate Information not available 09/14/2016 How Much Tobacco Do You Chew? None Information not available 08/25/2017 In The 14 Days Before Symptom Onset, Have You Had Close Contact With A Laboratory-confi rmed COVID-19 While That Case Was Ill? No Information not available 05/15/2024 In The 14 Days Before Symptom Onset, Have You Had Close Contact With A Person Who Is Under Investigation For COVID-19 While That Person Was Ill? No [email or web address] Information not available 05/15/2024 Have You Been To An Area Known To Be High Risk For COVID-19? No [email or web address] Information not available 05/15/2024 Are You Deaf Or Do You Have Serious Difficulty Hearing? No Information not available 09/14/2016 What Type Of Diet Are You Following? REGULAR Information not available 09/14/2016 Which Illicit Or Recreational Drugs Have You Used? Denies Former Herion Information not available 08/25/2017 Have You Processed Blood Or Body Fluids From An Ebola Virus Disease Patient Without Appropriate PPE? No [email or web address] Information not available 05/15/2024 Do You Reside In Or Have You Traveled To An Area Where Ebola Virus Transmission Is Active? No [email or web address] Information not available 05/15/2024 What Is The Highest Grade Or Level Of School You Have Completed Or The Highest Degree You Have Received? IB33701-8 [email or web address] Information not available 05/15/2024 Have There Been Any Changes To Your Family Or Social Situation? No [email or web address] Information not available 05/15/2024 What Is The Fluoride Status Of Your Home? Fluoridated [email or web address] Information not available 05/15/2024 When Did You Quit Smoking? 1-5yearssincelas tcigarette Information not available 05/15/2024 Hard Of Hearing Or Deaf In One Or Both Ears? No [email or web address] Information not available 03/18/2023 Have You Recently Or Are You Planning To Travel To An Area With Zika Virus? No [email or web address] Information not available 05/15/2024 Legally Blind In One Or Both Eyes? No [email or web address] Information not available 03/18/2023 Live Alone Or With Others? With Others [email or web address] Information not available 03/18/2023 Do You Have A Medical Power Of Geophysical Prospecting Permit Agent? No [email or web address] Information not available 05/15/2024 What Was The Date Of Your Most Recent Tobacco Screening? 12/20/2024 [email or web address] Information not available 12/20/2024 How Many Children Do You Have? 1 Information not available 08/25/2017 What Is Your Current Pack Years? 20-29packyears [email or web address] Information not available 05/15/2024 Do You Use Protection During Sex? No [email or web address] Information not available 03/18/2023 Do You Use Protection Against STDs? No [email or web address] Information not available 05/15/2024 What Is Your Relationship Status? [email or web address] Information not available 12/20/2024 Seat Belts Used Routinely Yes [email or web address] Information not available 03/18/2023 Are You Sexually Active? Yes Information not available 09/14/2016 Smoke Alarm In Home Yes [email or web address] Information not available 03/18/2023 Do You Have Smoke And Carbon Monoxide Detectors In Your Home? No [email or web address] Information not available 05/15/2024 At What Age Did You Start Smoking Tobacco? 12 [email or web address] Information not available 05/15/2024 Are You Passively Exposed To Smoke? Yes Information not available 05/15/2024 How Much Tobacco Do You Smoke? No Information not available 05/15/2024 Has Tobacco Cessation Counseling Been Provided? Yes [email or web address] Information not available 03/18/2023 On What Date Was Tobacco Cessation Counseling Provided? 12/20/2024 Information not available 12/20/2024 How Many Years Have You Smoked Tobacco? 26 [email or web address] Information not available 05/15/2024 Do You Have Difficulty Walking Or Climbing Stairs? No [email or web address] Information not available 03/18/2023 What Contraceptive Method Was Reported At Start Of This Visit? Female Sterilization Depo For Bleeding [email or web address] Information not available 03/18/2023 What Contraceptive Method Was Reported At End Of This Visit? Female Sterilization [email or web address] Information not available 03/18/2023 Do You Want To Talk About Contraception Or Prevention During Your Visit Today? No - I Am Already Using Contraception [email or web address] Information not available 03/18/2023 How Many Years Have You Used E-cigarettes Or Vape? 1 [email or web address] Information not available 05/15/2024 Do You Have Any Future Plans To Get ? No, I Don't Want To Become [email or web address] Information not available 03/18/2023 Sex: Female Functional Status Question Answer Note LastModified by Organizat ion Details LastModified Time Do you use any illicit or recreational drugs? No [email or web address] Information not available 05/15/2024 Do you or have you ever used any other forms of tobacco or nicotine? Yes [email or web address] Information not available 03/18/2023 What is your level of alcohol consumption? None Information not available 09/14/2016 Do you or have you ever used smokeless tobacco? Never used smokeless tobacco [email or web address] Information not available 05/15/2024 Are you currently employed? No [email or web address] Information not available 05/15/2024 What is your status? Not [email or web address] Information no t available 05/15/2024 Do you have difficulty doing errands alone? No [email or web address] Information not available 03/18/2023 Are you able to care for yourself independently? Yes Information not available 09/14/2016 What is your occupation? none [email or web address] Information not available 05/15/2024 Do you have difficulty dressing, bathing, grooming, or toileting? No [email or web address] Information not available 03/18/2023 Do you or have you ever used e-cigarettes or vape? Current user of electronic cigarettes vape [email or web address] Information not available 01/19/2024 What is your exercise level? None Information not available 08/25/2017 Mental Status Question Answer Note LastModified by Organization D etails LastModified Time Do you have difficulty concentrating, remembering or making decisions? No [email or web address] Information no t available 03/18/2023 Family History Relationship Description Onset Age of this Age Resolved Age Notes LastModified by Organization Details LastModified Time Father No current problems or disability Not available 09/14 10:31:20 Mother Multiple sclerosis 61 [email or web address] Not available 2022 13:12:03 Medical History Condition Response Pancreatitis N Other N Atrial Fibrillation N congenital heart disease N Blood Diseases N Hyperthyroidism N Rheumatoid arthritis N Blood Transfusion N Erectile Dysfunction N amputation N Skin Lesions N Depression N Pneumonia N Incontinence N Murmur N Edema N Alzheimer's Disease N Migraine Headaches N Tobacco Abuse N Anxiety Disorder N Hemorrhoids N Obesity N Vision or Eye Problems N Arthritis N Restless Leg Syndrome N Polyps N Infertility N Carpal Tunnel N Acid Reflux (GERD) N Cancer N Varicosities N Stroke N Tendonitis N Crohn's Disease N Hypercholesterolemia N Skin Cancer N Headaches N Fibromyalgia N Irritable Bowel Syndrome N Anal Fissure N Kidney Disease N Heart Problems N Hospitalizations N Gallstones N Kidney or Bladder Problems N Goiter N Acne N Eating Disorder N Maharaj's Esophagus N Hypertriglyceridemia N Constipation N Embolism N Vitamin B12 Deficiency N Deviated Septum N AIDS/HIV N Myocardial Infarction N Asthma N Mitral Valve Disorders N Vertigo N Hepatitis N Thyroid Cancer N Neuropathy N History of DVT N Herniated Disc N Chicken Pox N Von Willebrands Disease N Thrombophilias N Breast Cancer N Hernia N Plantar Fasciitis N Hypothyroidism N Lung Disease N Defects or Inherited Disease N Breast Problem N Ovarian Cyst N Anesthesia Complications N Testosterone Deficiency N Interstitial Cystitis N Congenital Anomalies N Hypoglycemia N Blood clot N Vitamin D Deficiency N Cellulitis N Endometriosis N Bladder or Kidney Problems N Fracture N Panic Disorder N Schizophrenia N Concussion N Spina Bifida N Osteoarthritis N Parkinson's Disease N Disc Protrusion N STI N Esophagitis N Angina N Thyroid Problems N GI Problems N ADD/ADHD N Anemia N Multiple Sclerosis N Abnormal PAP N Lumbago N Mental Illness N Psychiatric Illness N Diabetes N Ovarian Cancer N Degenerative Disc Disease N Seizures/Epilepsy N Hyperlipidemia N Syncope N Insomnia N Eczema N Abuse/Domestic Violence N Attention Deficient Disorder N Dementia N Ulcerative colitis N Cerebrovascular Disease N Depression N Guillain-[place] N Sleep Apnea N Aneurysm N Bronchitis N Heart Disease N Hypertension N Pre-Eclampsia N Suicidal Ideation N Osteoporosis N Gynecological History Statement/Question Response Abnormal Pap Yes Date of Last Mammogram 03/28/2021 Flow Light Date of LMP 12/18/2023 Post Menopausal Bleeding N STIs/STDs Y Colposcopy 09/22/2017 HPV Vaccine N Most Recent Mammogram 03/28/2021 Current Control Method Tubal Ligat ion Age at Menarche 11 Age at First Child 19 Last Annual Exam/Provider 01/19/24 w/DT Date of Last Colonoscopy Sexually Active? Y Date of Last Cervical Culture 12/20/2024 Menses Monthly N Date of Last Pap Smear 01/19/2024 Sexual Problems? N LMP Approximate Hormone Replacement Therapy N Obstetrics History GPAL:G 1 P 1 0 0 1 Type Value Full Term 1 Living 1 Total 1 Immunizations Vaccine Type Date Status Note Provider Name and Address Organization Details Recorded Time Tdap 04/04/19 13 completed Not Available [facility] 03/18/2019 02:21:19 Influenza, split virus, quadrivalent, preservative 01/17/20 21 cancelled patient objection Rosalva Soni APRN [address], [place], [address], [place] - [facility] 01/16/2021 09:51:48 COVID-19, mRNA, LNP-S, PF, 100 mcg/0.5mL dose or 50 mcg/0.25mL dose 01/17/20 21 cancelled patient objection Rosalva Soni APRN [address], [place], [address], [place] [facility] 01/16/2021 09:51:48 Influenza, split virus, quadrivalent, preservative 12/26/19 23 cancelled patient objection Rosalva Soni APRN [address], [place], [address], [place] [facility] 12/26/2022 13:37:37 Hep A, adult 04/02/19 19 completed Not Available [facility] 03/18/2023 13:48:24 Hep B, adult 10/18/19 11 completed MEGAN Snow - [facility] 01/26/2022 14:45:26 Hep A, adult 04/26/19 23 completed Rosalee pinedo, [place] - [facility] 12/25/2022 13:08:24 Past Encounters Encounter ID Performer Location Encounter Start Date Encounter Closed Date Diagnosis/Indication Diagnosis SNOMED-CT Code Diagnosis ICD10 Code Diagnosis IMO Codes Diagnosis Note [id number] Rosalva SANTI Soni [employer] [address] [facility] MEGAN Mason [address] 12/20/2024 09:39:41 12/20/2024 10:34:38 Venereal disease screening 469366733 Z11.3 [id number] Obese class I [id number] 08611 E66.811 Z68.33 [id number] Bacterial vaginosis 4197 66709 N76.0 B96.89 468192 Vaginal irritation 61636 6004 N89.8 [id number] Health Concerns Section Related Observation LastModified by Organization Detai ls LastModified Time None Recorded Concern Status LastModified by Organization Details LastModified Time None Recorded Payers Encounter Date Sequence Insurance Name Policy Number Policy Francisco Covered Member ID Francisco Member ID Guarantor Name 12/20/2024 1 [facility] (MEDICAID HMO) Elin Shelley [id number] Elin Shelley Notes Date Note Type Note Provider Name and Address Organization Details Recorded Time 12/20/2024 text/html ROS as noted in the HPI Elin presents today requesting STD testing, she is complaining of yellow vaginal discharge with odor.She used metrogel about a month ago . Rosalva Soni, SANTI [address], [place], [address], [place] - [facility] 12/20/2024 11:05:03 OBGyn Episode No OBEpisode recorded.
--- OUTSIDE RECORDS SUMMARY | 2025-02-06 12:19 | XMS_ITS | Clinical Summary ---
Author Organization Wil [facility]JIV[facility] OD Address [address] [place] [address] Phone Care Team Providers Care Drawer In Dobby Loom Name Role Phone Kevin Vazquez MD Unavailable [phone] Scott Madrid MD Unavailable Nonstaff, Referring Primary Care Provider Unavai lable Allergies Active Allergy Reactions Criticality Noted Date Comments Meloxicam 09/12/2014 Buprenorphine-Naloxone 09/12/2014 [email or web address] Medications * This document contains information received [...] mouth. Active nalOXone (NARCAN) 4 mg/actuation Nasl Randolph, Non-Aerosol 0.1 mL by INTRANASAL route as [...] file Not on file Not on file Last Filed Vital Signs Vital Sign Reading [...] Tdap) 04/04/2022 04/04/2012 COVID-19 Vaccine (1 - 2024-2 6 season) 2024 Influenza Vaccine (#1) 2024 6 (Declined), 04/10/2014 (Postponed), 12/21/2006 Meningococcal B Vaccine Aged Out No l onger eligible based on patient's age to complete this topic Goals Goal Patient Goal Type Associated Problems Recent Progress Patient-Stated? Author Maintain a healthy diet, exercise regularly and maintain an ideal body weight General No [place] RMA Stay Tobacco Free Lifestyle No [place] RMA Insurance [facility] MEDICAID MEDICAID Care Teams Drawer In Dobby Loom Relationship Specialty Start Date End Date Nonstaff, Referring PCP - General 09/30/19 Kevin Vazquez MD [address] [facility] [place] [address] Psychiatry & Neurology-Neurology 01/24/15 Scott Madrid MD [address] [facility] [address] [place] [address] Urology 01/24/15
--- OUTSIDE RECORDS SUMMARY | 2025-02-06 12:20 | XMS_ITS | Data Portability ---
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 Completi on: 12/25/19 12;Indic ation: - (-5);Elsa nted: 12/15/19 12 Not Available Not Available Not Available Ritalin 1 school counsellor 2 hr 03/17 completed ritalin 10mg;Rec orded Status: Recorded on: 10/18/19 11 9:59AM;D iscontin ued Status: Disconti nued on: 03/17/19 12 2:43PM;U ser: mateo case;Est. Completi on: 11/17/19 11;Indic ation: [...] Disconti nued on: 12/08/19 12 1:07PM;U ser: neuss;Jaci t. Completi on: 09/28/19 12 Not Available Not Available Not Available Topamax 1 qd 04/11 completed topromax 100mg;Re corded Status: Recorded on: 05/30/19 09 5:30PM;D iscontin ued Status: Disconti nued on: 04/11/19 11 11:20AM; User: mateo case;Est. Completi on: 12/26/19 09;Indic ation: - (-5) Not [...] 12 11:23AM; User: mateo case;Est. Completi on: 04/09/19 12;Indic ation: - (-5) Not [...] Disconti nued on: 01/03/20 15 3:55PM;U ser: ibis; Indicati on: - (-5) Not Available Not Available [...] nued on: 03/17/19 12 2:43PM;U ser: mateo case;Est. Completi on: 10/16/19 11;Indic ation: - (-5);Elsa [...] Disconti nued on: 03/17/19 12 2:43PM;U ser: ibis; Est. Completi on: 02/10/20 11;Indic ation: Pregnanc [...] Disconti nued on: 05/26/19 12 2:46PM;U ser: [email or web address];E st. Completi on: 04/20/19 12 Not Available [...] Disconti nued on: 12/28/19 14 10:00AM; User: ruy;Es t. Completi on: 03/06/19 13 Not Available Not Available Not Available [facility] DM Cough and Chest one tsp qid [...] Disconti nued on: 12/28/19 14 10:00AM; User: [email or web address];[place] st. Completi on: 04/10/19 13;Indic ation: Consitpa [...] height Body mass index (BMI) Body weight Provider Name and Address Organization Details Last Updated DateTime 05/15/2024 160.02 cm 37.4 kg/m2 85400.99 g Debo Calderón [facility] [place] 05/15/2024 11:18:35 Date Recorded Body height Body mass index (BMI) Body weight Pain severity - 0-10 verbal numeric rating [Score] - Reported Systolic And Diastolic Provider Name and Address Organization Details Last Updated DateTime 12/20/2024 160.02 cm 33.2 kg/m2 84641.93 g 0 128/84 mm[Hg] Rosalee Sanchez [facility] [place] 10:05:57 Date Recorded Body height Body mass index (BMI) Body weight Pain severity - 0-10 verbal numeric rating [Score] - Reported Systolic And Diastolic Provider Name and Address Organization Details Last Updated DateTime 01/10/2024 160.02 cm 37.4 kg/m2 89286.99 g 0 132/84 mm[Hg] Bernadette Franco [facility] [place] 14:39:46 Date Recorded Body height Body mass index (BMI) Body weight Systolic And Diastolic Provider Name and Address Organization Details Last Updated DateTime 01/19/2024 160.02 cm 38.4 kg/m2 41813.83 g 128/84 mm[Hg] Rosalee Laura [facility] [place] 01/19/2024 15:58:28 Date Recorded Body height Body mass index (BMI) Body weight Pain severity - 0-10 verbal numeric rating [Score] - Reported Provider Name and Address Organization Details Last Updated DateTime 02/10/2024 160.02 cm 37.2 kg/m2 68400.4 g 0 Rosalee Stephen [facility] [place] 02/10/2024 17:09:30 Social History Question Answer Notes LastModified by Organization Details LastModified Time Tobacco Smoking Status Former Smoker Debo Calderón [facility] 05/15/2024 11:16:57 Do You Have An Advance Directive? No Information not available 09/14/2016 Are You Blind Or Do You Have Difficulty Seeing? No [email or web address] Information not available 03/18/2023 Is Blood Transfusion Acceptable In An Emergency? Yes [email or web address] Information not available 05/15/2024 What Is Your [...] COVID-19 While That Person Was Ill? No [email or web address] Information not available 05/15/2024 Have You Been To An Area Known To Be High Risk For COVID-19? No [email or web address] Information not available 05/15/2024 Are You Deaf Or Do You Have Serious Difficulty Hearing? No Information not available 09/14/2016 What Type Of Diet Are You Following? REGULAR Information not available 09/14/2016 Which Illicit Or Recreational Drugs Have You Used? Denies Former Herion Information not available 08/25/2017 Have You Processed Blood Or Body Fluids From An Ebola Virus Disease Patient Without Appropriate PPE? No [email or web address] Information not available 05/15/2024 Do You Reside In Or Have You Traveled To An Area Where Ebola Virus Transmission Is Active? No [email or web address] Information not available 05/15/2024 What Is The Highest Grade Or Level Of School You Have Completed Or The Highest Degree You Have Received? [id number] [email or web address] Information not available 05/15/2024 Have There Been Any Changes To Your Family Or Social Situation? No [email or web address] Information not available 05/15/2024 What Is The Fluoride Status Of Your Home? Fluoridated [email or web address] Information not available 05/15/2024 When Did You Quit Smoking? 1-5yearssincelas tcigarette [email or web address] Information not available 05/15/2024 Hard Of Hearing Or Deaf In One Or Both Ears? No [email or web address] Information not available 03/18/2023 Have You Recently Or Are You Planning To Travel To An Area With Zika Virus? No Information not available 05/15/2024 Legally Blind In One Or Both Eyes? No [email or web address] Information not available 03/18/2023 Live Alone Or With Others? With Others [email or web address] Information not available 03/18/2023 Do You Have A Medical Power Of Pattern Weaver? No [email or web address] Information not available 05/15/2024 What Was The Date Of Your Most Recent Tobacco Screening? 12/20/2024 [email or web address] Information not available 12/20/2024 How Many Children Do You Have? 1 Information not available 08/25/2017 What Is Your Current Pack Years? 20-29packyears [email or web address] Information not available 05/15/2024 Do You Use Protection During Sex? No [email or web address] Information not available 03/18/2023 Do You Use Protection Against STDs? No [email or web address] Information not available 05/15/2024 What Is Your Relationship Status? Information not available 12/20/2024 Seat Belts Used Routinely Yes [email or web address] Information not available 03/18/2023 Are You Sexually Active? Yes Information not available 09/14/2016 Smoke Alarm In Home Yes [email or web address] Information not available 03/18/2023 Do You Have Smoke And Carbon Monoxide Detectors In Your Home? No [email or web address] Information not available 05/15/2024 At What Age Did You Start Smoking Tobacco? 12 [email or web address] Information not available 05/15/2024 Are You Passively Exposed To Smoke? Yes [email or web address] Information not available 05/15/2024 How Much Tobacco Do You Smoke? No [email or web address] Information not available 05/15/2024 Has Tobacco Cessation Counseling Been Provided? Yes [email or web address] Information not available 03/18/2023 On What Date Was Tobacco Cessation Counseling Provided? 12/20/2024 [email or web address] Information not available 12/20/2024 How Many Years Have You Smoked Tobacco? 26 Information not available 05/15/2024 Do You Have [...] Have You Used E-cigarettes Or Vape? 1 [email or web address] Information not available 05/15/2024 Do You Have Any Future Plans To Get ? No, I Don't Want To Become [email or web address] Information not available 03/18/2023 Sex: Female Functional Status Question Answer Note LastModified by Organizat ion Details LastModified Time Do you use any illicit or recreational drugs? No [email or web address] Information not available 05/15/2024 Do you or have you ever used any other forms of tobacco or nicotine? Yes [email or web address] Information not available 03/18/2023 What is your level of alcohol consumption? None Information not available 09/14/2016 Do you or have you ever used smokeless tobacco? Never used smokeless tobacco [email or web address] Information not available 05/15/2024 Are you currently employed? No [email or web address] Information not available 05/15/2024 What is your status? Not [email or web address] Information no t available 05/15/2024 Do you have difficulty doing errands alone? No [email or web address] Information not available 03/18/2023 Are you able to care for yourself independently? Yes Information not available 09/14/2016 What is your occupation? none [email or web address] Information not available 05/15/2024 Do you have difficulty dressing, bathing, grooming, or toileting? No [email or web address] Information not available 03/18/2023 Do you or have you ever used e-cigarettes or vape? Current user of electronic cigarettes vape [email or web address] Information not available 01/19/2024 What is your [...] available 09/14 10:31:20 Mother Multiple sclerosis 61 [email or web address] Not available 2022 13:12:03 Medical History Condition [...] colitis N Cerebrovascular Disease N Depression N Guillain-[place] N Sleep Apnea N Aneurysm N Bronchitis [...] Time Tdap 04/04/19 13 completed Not Available [facility] 03/18/2019 02:21:19 Influenza, split virus, quadrivalent, preservative 01/17/20 21 cancelled patient objection Rosalva Soni, CONTENT CREATION MANAGER [address], [place], [address], [place] - [facility] 01/16/2021 09:51:48 COVID-19, mRNA, LNP-S, PF, 100 mcg/0.5mL dose or 50 mcg/0.25mL dose 01/17/20 21 cancelled patient objection Rosalva Soni, CONTENT CREATION MANAGER [address], [place], [address], [place] [facility] 01/16/2021 09:51:48 Influenza, split virus, quadrivalent, preservative 12/26/19 23 cancelled patient objection Rosalvaaidee Soni, CONTENT CREATION MANAGER [address], [place], [address], [place] [facility] 12/26/2022 13:37:37 Hep A, adult 04/02/19 19 completed Not Available [facility] 03/18/2023 13:48:24 Hep B, adult 10/18/19 11 completed Rosalee pinedo [place] - [facility] 01/26/2022 14:45:26 Hep A, adult 04/26/19 23 completed Rosalee [place]ined[place], [place] - [facility] 12/25/2022 13:08:24 Past Encounters Encounter ID Performer Location Encounter Start Date Encounter Closed Date Diagnosis/Indication Diagnosis SNOMED-CT Code Diagnosis ICD10 Code Diagnosis IMO Codes Diagnosis Note [id number] Lizbeth Lorenzana MD [place] [address] [place] [address] 09/14/2016 10:14:00 09/14/2016 11:44:21 Vaginitis 04027406 N76.0 Fibromyalgia 603685937 M 79.7 [id number] Lizbeth [place], MD [address] [place] [address] 11/16/2016 14:06:05 11/16/2016 15:42:16 Fibromyalgia 386550912 M79.7 Acute bact erial sinusitis 99147359 J01.90 [id number] Lizbeth Lorenzana MD [address] [place] [address] 01/27/2017 15:02:49 01/27/2017 15:40:37 Fibromyalgia 479746086 M79.7 Dental abscess 497981525 K04.7 [id number] Lizbeth Lorenzana MD [address] [place] [address] 02/19/2017 09:41:59 02/19/2017 10:37:12 Fibromyalgia 019729001 M79.7 Acute bact erial sinusitis 19175953 J01.90 Cough 49857251 R05 [id number] SANTI Shoemaker BUSINESS BANKING SALES ASSISTANT [address] [place] [address] [place] [id number] 08/25/2017 14:27:13 08/25/2017 16:55:57 Routine gynecologic examination done 6799668430 9101 Z01.419 Depression screening 171 882430 Z13.89 Hypertensi on screening 786545862 Z13.6 Screening for malignant neoplasm of cervix 809884797 Z12.4 Diet education 53327860 Z71.3 Encourage healthy eating/dec reased fats, sugars, fried foods Counseling 849271659 Z71 .82 Encouraged regular exercise 30-40min/d ay 4-5 days/wk Body mass index 30+ - obesity 449927607 Z68.30 Irregular periods 666007 07 N92.6 Hot sweats 817930891 R61 Venereal d isease screening 214496393 Z11.3 History of drug abuse 37 7704167 F19.21 [id number] SANTI Shoemaker BUSINESS BANKING SALES ASSISTANT [address] [place] [address] [place] [address] 08/27/2017 13:21:47 08/27/2017 14:10:03 Hepatitis C antibody detected 112413881 Z86.19 [id number] SANTI Shoemaker BUSINESS BANKING SALES ASSISTANT [address] [place] [address] [place] [address] 09/22/2017 15:09:29 09/22/2017 16:07:20 Low grade squamous intraepithelial lesion on cervical Papanicolaou smear 0748579936 9105 R87.612 HPV - Rowan n papillomavirus test positive 721892158 R87.619 Hepatitis C antibody detected 238625597 Z86.19 On lithium 730672175 Z79 .758 [id number] DO Orquidea Archer BUSINESS BANKING SALES ASSISTANT [address] [place] [address] [place] [address] 11/24/2017 14:00:29 11/24/2017 14:41:04 Cervical intraepithelial neoplasia grade 2 026526014 N87.1 Pre-surger y evaluation 340016833 Z01.818 Bipolar disorder 4832007 4 F31.9 Paranoid disorder 801482 009 F22 Fibromyalgia 797363763 M 79.7 [id number] DO Orquidea Archer BUSINESS BANKING SALES ASSISTANT [address] [place] [address] [place] [address] 12/20/2017 13:00:41 12/20/2017 14:29:23 Surgical follow-up 078895704 Z09 Cervical intraepithelial neoplasia grade 1 078500795 N87.0 Body mass index 25-29 - overweight 385787519 Z68.29 Vaginal discharge 432257 006 N89.8 [id number] SANTI Shoemaker BUSINESS BANKING SALES ASSISTANT [address] [place] [address] [place] [address] 06/30/2018 13:44:56 06/30/2018 14:41:21 Venereal disease screening 307387226 Z11.3 Candidal vulvovaginitis 43514726 B37.3 [id number] SANTI Shoemaker BUSINESS BANKING SALES ASSISTANT [address] [place] [address] [place] [address] 03/16/2019 16:38:00 03/16/2019 17:27:15 History of intravenous drug abuse 3012387944 7150688 F19.11 Dysmenorrhea 856589383 N 94.6 Menorrhagia 296016330 N9 2.0 [id number] SANTI Shoemaker BUSINESS BANKING SALES ASSISTANT [address] [place] [address] [place] [id number] 07/26/2019 13:00:49 07/26/2019 14:05:42 Endometriosis (clinical) 129750259 N80.9 Bacterial vaginosis 4197 33386 N76.0 [id number] SANTI Shoemaker BUSINESS BANKING SALES ASSISTANT [address] [place] [address] [place] [address] 01/16/2021 08:32:38 01/16/2021 09:48:56 Routine gynecologic examination done 5759569972 9101 Z01.419 Depression screening 171 906745 Z13.89 Hypertensi on screening 002359722 Z13.6 Screening for malignant neoplasm of cervix 891493006 Z12.4 Diet education 46269527 Z71.3 Encourage healthy eating/dec reased fats, sugars, fried foods Counseling 141048272 Z71 .82 Encouraged regular exercise 30-40min/d ay 4-5 days/wk Examinatio n of blood pressure 261897361 Z01.30 Vaccine de clined by patient 0232830518 02 Z28.21 Pt declined flu and covid vaccine today. Dysmenorrhea 694145763 N 94.6 Mass of right breast 597 2899820 3619079 N63.10 Bipolar disorder 7988234 4 F31.9 History of drug abuse 37 0948529 F19.21 Body mass index 30+ - obesity 658219318 Z68.32 Tobacco user 070310434 Z 72.0 [id number] SANTI Randall BUSINESS BANKING SALES ASSISTANT [address] [place] [address] [place] [address] 04/08/2021 16:58:11 04/08/2021 17:08:34 Uses depot contraception 171066259 Z30.42 [id number] SANTI Shoemaker BUSINESS BANKING SALES ASSISTANT [address] [place] [address] [place] [id number] 06/30/2021 11:42:09 06/30/2021 12:04:35 Staphylococcal infection of skin 065578431 B95.8 Dysmenorrhea 482411914 N 94.6 [id number] SANTI Shoemaker BUSINESS BANKING SALES ASSISTANT [address] [place] [address] [place] [id number] 01/26/2022 14:26:03 01/26/2022 14:54:34 Dysmenorrhea 178308211 N94.6 [id number] SANTI Shoemaker BUSINESS BANKING SALES ASSISTANT [address] [place] [address] [place] [id number] 09/30/2022 13:05:41 09/30/2022 13:52:08 Dysmenorrhea 630654246 N94.6 [id number] SANTI Shoemaker BUSINESS BANKING SALES ASSISTANT [address] [place] [address] [place] [id number] 12/25/2022 12:54:42 12/25/2022 13:49:41 Routine gynecologic examination done 2555291823 9101 Z01.419 Depression screening 171 811345 Z13.31 PHQ-9 completed today. Diet education 44718082 Z71.3 Encourage healthy eating/bradford it fats, sugars, fried foods Counseling 869958791 Z71 .82 Exercise counsellin g. Patient encouraged to exercise 30 minutes 5 days a week. Examinatio n of blood pressure 367777608 Z01.30 Vaccine de clined by patient 8182988625 02 Z28.21 Pt declined flu vaccine today. Hypertensi on screening 187275276 Z13.6 Screening for malignant neoplasm of cervix 354310951 Z12.4 Body mass index 30+ - obesity 762032410 Z68.32 Obesity 526885953 E66.9 Dyspareunia 60359677 N94 .10 Pain in pelvis 76257330 R10.2 Endometrio sis (clinical) 302914517 N80.9 Dysmenorrhea 865968221 N 94.6 History of drug abuse 37 9279096 F19.21 [id number] SANTI Shoemaker BUSINESS BANKING SALES ASSISTANT [address] [place] [address] [place] [address] 03/18/2023 13:47:14 03/18/2023 14:28:38 Dysmenorrhea 598488934 N94.6 Bipolar disorder 0591339 4 F31.9 Dyspareunia 92564345 N94 .10 Endometrio sis (clinical) 960347388 N80.9 Unintentio nal weight gain 7030200979 43418 R63.5 [id number] SANTI Lopez BUSINESS BANKING SALES ASSISTANT [address] [place] [address] [address]. [place] [address] 07/30/2023 16:21:48 07/30/2023 16:48:45 Uses depot contraception 758655097 Z30.42 [id number] Infusion Nurse MATTY MejiaWinfield BUSINESS BANKING SALES ASSISTANT [address] [place] [address] [address] [address] 10/21/2023 13:28:57 10/21/2023 13:38:29 Dysmenorrhea 742091751 N94.6 [id number] SANTI Shoemaker BUSINESS BANKING SALES ASSISTANT [address] [place] [address] [place] [id number] 01/19/2024 08:52:24 01/19/2024 21:26:58 Routine gynecologic examination done 2106488183 9101 Z01.419 Depression screening 171 794879 Z13.31 PHQ-9 completed today. Diet education 62515723 Z71.3 Encourage healthy eating/bradford it fats, sugars, fried foods Counseling 115533006 Z71 .82 Exercise counselnadeen raza. Patient encouraged to exercise 30 minutes 5 days a week. Examinatio n of blood pressure 730953923 Z01.30 Hypertensi on screening 774145088 Z13.6 Screening for malignant neoplasm of cervix 947405480 Z12.4 Body mass index 30+ - obesity 256145620 Z68.38 Obesity 945751953 E66.9 Uses depot contraception 274901561 Z30.42 Endometrio sis (clinical) 349329371 N80.9 History of drug abuse 37 5078567 F19.21 Abscess of skin and/or subcutaneous tissue 49146707 L02.91 left axilla [id number] SANTI Shoemaker BUSINESS BANKING SALES ASSISTANT [address] [place] [address] [place] [address] 01/10/2024 14:16:23 01/10/2024 15:09:50 Uses depot contraception 664520350 Z30.42 Abnormal vaginal odor 62 077196 N89.8 [id number] SANTI [place] BUSINESS BANKING SALES ASSISTANT [address] [place] [address] [address]. [place] [address] 02/10/2024 16:57:48 02/10/2024 17:12:41 Venereal disease screening 127514834 Z11.3 Exposure t o sexually transmissible disorder 427575544 Z20.2 Body mass index 30+ - obesity 664292638 Z68.37 Obesity 019929828 E66.9 [id number] Rosalva Soni APRN [place] [employer]ING SALES ASSISTANT [address] [place] [address] [place] [address] 05/15/2024 10:57:40 05/15/2024 11:22:56 Uses depot contraception 816917161 Z30.42 Depression screening 171 633812 Z13.31 PHQ-9 completed today. [id number] Rosalva Soni APRN [place] [employer]ING SALES ASSISTANT [address] [place] [address] [place] [address] 12/20/2024 09:39:41 12/20/2024 10:34:38 Venereal disease screening 642964465 Z11.3 [id number] Obese class I 4500294408 89233 E66.811 Z68.33 6714620 Bacterial vaginosis 4197 12496 N76.0 B96.89 [id number] Vaginal irritation 94546 6004 N89.8 [id number] Health Concerns Section Related Observation LastModified by Organization Detai ls LastModified Time None Recorded Concern Status LastModified by Organization Details LastModified Time None Recorded Advance Directives Directive N: Payers Insurance Date Sequence Insurance Name Policy Number Policy Francisco Covered Member ID Francisco Member ID Guarantor Name 12/20/2024 1 [employer] [place] (MEDICAID REPLACEMENT - HMO) Elin Shelley [id number] Elin Shelley 12/20/2024 1 [employer]MO[place] [id number] Elin Shelley [id number] Elin Shelley 12/20/2024 [place]ID) Elin Shelley [id number] Elin Shelley 12/20/2024 1 [employer] [facility] (MEDICAID HMO) Elin Shelley [id number] Elin Shelley Notes Date Note Type Note Provider Name and Address Organization Details Recorded Time 01/10/2024 text/html ROS as noted in the HPI Pt. presents for depo. She has additional c/o vaginal discharge with an odor. Rosalva Zachariah, CONTENT CREATION MANAGER [address], [place], [address], [place] [facility] 01/10/2024 15:11:09 01/19/2024 text/html Annual - MOBRepo rted by PatientHistoryFor history, patient reportslast annual exam: 12/25/22.ContraceptionF or current contraception, patient reportssatisfied with current contraception,monogamou s relationship,intramuscu lar contraceptive injection, andtubal ligation.Preventative measuresFor preventive measures, patient reportsencourage self breast examination,encourage regular exercise,encourage no tobacco use, andencourage regular mammograms starting age 40.Elin is here for annual exam. She continues to have vaginal odor. She was recently treated for yeast. Nuswab was sent and negative for other bacterias. Rosalvaaidee Soni, SANTI [address], [place], [address], [employer] - [facility] 01/19/2024 17:48:27 02/10/2024 text/html Patient presents as walk in with complaints of possible STI and requesting STI testing. She states she was exposed to an STI but not sure which one. C/o vaginal itching. Shahrzad Melgar, SANTI [address], [place], [address], [place] - [facility] 02/10/2024 17:17:03 05/15/2024 text/html ROS as noted in the HPI Doing well with depo and desires to continueRto 12 wks for next injectionEncourage Ca/Vit D supplement Reproductive life plan discussed. Patient does not plan to have children in the future. control offered. Patient accepted. Number of sexual partners: 1 Patient is having protected sex. Rosalvaaidee Soni, SANTI [address], [place], [address], [place] - [facility] 05/15/2024 13:09:16 12/20/2024 text/html ROS as noted in the HPI Elin presents today requesting STD testing, she is complaining of yellow vaginal discharge with odor.She used metrogel about a month ago . Rosalva Soni, CONTENT CREATION MANAGER [address], [place], [address], [facility] - [facility] 12/20/2024 11:05:03 OBGyn Episode No OBEpisode recorded.
[2025-02-06 13:57] VITALS: BP 114/75; PULSE 74; RESP 20; TEMP 36.9; O2SAT 100
== END 2025-02-06 14:03 | disposition home or self-care (01) ==
PROVIDERS: Emergency Provider Student in an Organized Health Care Education/Training Program; PCP Family Medicine
DX: S93.601A Unspecified sprain of right foot, initial encounter (principal); W11.XXXA Fall on and from ladder, initial encounter
CPT/HCPCS: 73630; 99283